=== PATIENT | male | born 1990 | race Caucasian/White ===

== ENCOUNTER 2022-01-05 23:08 | Emergency (ER) | payer MEDICAID, SELFPAY ==
[2022-01-05 23:12] VITALS: BP 119/84; PULSE 100; RESP 18; TEMP 36.5; O2SAT 98
--- NOTE | 2022-01-05 23:40 | ED.ABDPAIN ---
HPI - Abdominal Pain General Chief Complaint: Nausea/Vomiting Stated Complaint: Nausea, bloating, unable to eat/sleep Time Seen by Provider: 01/05/22 23:23 History of Present Illness HPI narrative: Pt is a 31 year old gentleman with a long history of GERD and Irritable Bowel Syndrome who presents with 5 days of nausea. Pt has been using PeptoBismol extensively. He is having bowel movements. He really has no abd pain but feels like his stomach is inflated as his nausea makes him swallow more air than normal. No other concerns. Pt has had similar symptoms previously and would simply like to be placed on Zofran and allowed to go home. No fevers, chills, dysuria, chest pain, shortness of breath or overt abd pain. No actual vomiting. Related Data Home Medications Medication Instructions Recorded Confirmed famotidine 20 mg tablet (Pepcid AC 20 mg PO DAILY 01/05/22 01/05/22 Maximum Strength) omeprazole magnesium 20 mg 20 mg PO DAILY 01/05/22 01/05/22 tablet,delayed release (Prilosec OTC) Review of Systems Status of ROS Reports: 10 or more systems reviewed and unremarkable except as noted in History and below [facility] Medical History (Updated 01/05/22 @ 23:47 by Yefri Cortes MD) GERD (gastroesophageal reflux disease) Irritable bowel Exam Narrative: Exam Narrative: EXAM GENERAL: Patient appears comfortable and well. EYES: No scleral icterus. ENT: Tympanic membranes and oropharynx normal. THYROID: no thyroid nodules or thyromegaly. LYMPH: No supraclavicular or cervical lymphadenopathy. SKIN: Visible skin seen during exam normal or with benign process only. EXT: No dependent lower extremity pedal edema. HEART: Regular rate and rhythm with no murmurs, rubs, or gallops. LUNGS: Clear to auscultation bilaterally with no crackles or wheezes. ABD: Soft, non tender, non distended. PSYCH: Good eye contact, speech is not pressured. Const: Vital Signs, click to edit/add: Vital Signs - 24 hr 01/05/22 23:12 Temperature 97.7 F Pulse Rate [Left P ulse Oximeter] 100 Respiratory Rate 18 Blood Pressure [Ri ght Upper Arm] 119/84 Pulse Oximetry 98 Oxygen Delivery Me thod Room Air Course Course Hospital Course: Pt seen and examined. Vital Signs Vital signs: Initial Vital Signs Temperature 97.7 F 01/05/22 23:12 Temperature Source Temporal Artery Scan 01/05/22 23:12 Pulse Rate 100 01/05/22 23:12 Pulse Rhythm 01/05/22 23:12 Respiratory Rate 18 01/05/22 23:12 Blood Pressure 119/84 01/05/22 23:12 Blood Pressure Mean 95 01/05/22 23:12 Blood Pressure Position Sitting 01/05/22 23:12 Pulse Oximetry 98 01/05/22 23:12 Oxygen Delivery Method 01/05/22 23:12 Vital Signs Temperature 97.7 F 01/05/22 23:12 Pulse Rate 100 01/05/22 23:12 Respiratory Rate 18 01/05/22 23:12 Blood Pressure 119/84 01/05/22 23:12 Pulse Oximetry 98 01/05/22 23:12 Oxygen Delivery Method 01/05/22 23:12 Temperature 97.7 F 01/05/22 23:12 Pulse Rate 100 01/05/22 23:12 Respiratory Rate 18 01/05/22 23:12 Blood Pressure 119/84 01/05/22 23:12 Pulse Oximetry 98 01/05/22 23:12 Oxygen Delivery Method 01/05/22 23:12 MDM - Abdominal Pain MDM Narrative Medical decision making narrative: Pt is a 31 year old with a long history of Irritable Bowel Syndrome who presents with prolonged nausea. No overt abd pain, change in bowel or bladder, fevers or chills. Pt has normal vitals and normal exam. Pt would like to be treated with Zofran without extensive workup and arrange for outpatient follow up. I think this is reasoanble due to the mild nature of his symptoms. Differential Diagnosis Differential diagnosis: Likely abdominal pain, acute appendicitis, calculus of kidney, constipation, diverticulitis, gastroenteritis, pancreatitis and small bowel obstruction Discharge Plan Discharge Clinical Impression: Nausea Patient Disposition: Home, Self-Care Condition: Stable Instructions: Irritable Bowel Syndrome (ED) Additional Instructions: Zofran as directed Advance diet as tolerated Follow up with your doctor as needed. Activity Level: No Restrictions Discharge Diet: Regular Prescriptions: No Action omeprazole magnesium [Prilosec OTC] 20 mg tablet,delayed release (DR/EC) 20 mg PO DAILY famotidine [Pepcid AC Maximum Strength] 20 mg tablet 20 mg PO DAILY Stand Alone Forms: [employer] Info Instructions
[2022-01-06 00:01] VITALS: PULSE 80; RESP 18; O2SAT 98
--- OUTSIDE RECORDS SUMMARY | 2022-01-06 00:04 | XMS_ITS | Encounter Summary ---
:1990 Author Organization [facility] Address [address] [place] [address] Care Team Providers Name Role Phone Mary Ann Jerez M.D. Primary Care Provider Reason for Visit Reason Comments Medication Question Encounter Details Date Type Department Care Team Description 12/28/2021 Nurse Triage Department of [facility] Nona To, [place] dication Question Medicine, [place], R .N. [facility], [facility] [phone] [place], [place] ([address] [phone] Social History Tobacco Use Types Packs/Day Years Used Date Smoking Tobacco: Light Smoker Sex Assigned at Date Recorded Not on file documented as of this encounter Miscellaneous Notes Telephone Encounter - Nona To M.SPrabhjot, R.N. - 12/28/2021 7:36 PM CDT Chief Complaint / Reason for Call Patient is a 31 y.o. male calling regarding Medication Question. Assessment Concern: Was in ED 12/20/2021 and was prescribed Sucralfate. He has three pills left and would like to know if he may discontinue taking them. He finds that they are hard to swallow because they taste like paste. Feels like a waxy coating in his throat when he takes them. He reports that since starting the medication the burning in his stomach is completely gone. Talking clearly and calmly on the phone. Reviewed that the ED provider prescribed the medication for a week. Kurtis says he still has three tablets left because he only takes them three times a day instead of every six hours. Present for: a week Calling to request: Information about whether he may stop taking the medication. The recommended disposition is Call PCP Within 24 Hours (overriding Home Care). He will call clinic tomorrow to ask his primary care doctor about discontinuing the medication. Recommended going to ED if he has any difficulties breathing or inability to swallow. Reason for Disposition Pill stuck in throat or esophagus Protocols used: Swallowing [id number] Care Advice Patient/Caregiver understands and will follow care advice?: Yes, able to teach back HOME CARE: * You should be able to treat this at home. TREATMENT FOR PILL STUCK: * First, try drinking some warm water (1/2 to 1 cup; 160-240 ml). * If this does not work, try eating a small amount of bread and then drinking some water. PREVENTING PILLS FROM GETTING STUCK: * Here are some recommendations for helping you to swallow pills: * First, stand up or sit up. * Take a small sip of water beforehand. Reason: To moisten mouth and esophagus. * Swallow the pill. * Drink 1/4 to 1/2 cup (60-120 ml) of water after swallowing the pill. * Remain standing or sitting up for 5-10 minutes after swallowing the pill. CALL BACK IF: * Sensation of pill being stuck does not go away completely * You become worse documented in this encounter Plan of Treatment Upcoming Encounters Date Type Specialty Care Team Description 01/12/2022 Office Visit Family Medicine Mary Ann Jerez M.D. 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 PCP - General Family Medicine 12/22/[address] [place] [phone] documented as of this encounter
--- OUTSIDE RECORDS SUMMARY | 2022-01-06 00:04 | XMS_ITS | Clinical Summary ---
:1990 Author Organization [facility] Address [address] [place] [address] Care Team Providers Name Role Phone Mary Ann Jerez M.D. Primary Care Provider Source Comments Patient records contain information from all sites at [facility]. For routine questions regarding patient records, call [phone] during business hours, M-F 8:00 AM - 5:00 PM Central Time. Record requests for emergency care only can be directed to [phone] at any time.[facility] Allergies Active Allergy Reactions Severity Noted Date Comments Cefaclor Other (see comments) 05/16/2010 Medications Medication Sig Dispensed Refills Start Date End Date Status omeprazole (PriLOSEC) Take 20 mg by [address] capsule mouth every morning before breakfast. famotidine (PEPCID) Take 20 mg by 0 Active 20 mg tablet mouth 2 (two) times a day. pantoprazole Take 1 tablet 30 tablet 0 12/20/2021 01/19/2022 A ctive (PROTONIX) 40 mg EC (40 mg total) by tablet mouth every morning before breakfast. sucralfate (CARAFATE) Take 1 tablet (1 28 tablet 0 12/20/2021 12/27/2021 1 gram tablet g total) by mouth every 6 (six) hours for 7 days. 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 Nausea; Chills; Diarrhea 01/02/2022 Nurse Triage Family Medicine Vickie Beal, COVRyan D Inquiry R.N. 12/28/2021 Nurse Triage Family Medicine Nona To, Medicat ion Question M.S.N., R.N. 12/23/2021 Nurse Triage Family Medicine Nona To, Medicat ion Question M.S.N., R.N. 12/20/2021 Emergency Emergency Medicine Alex Enriquez, Upper Abdominal Pain C.N.P. Unspecified (Pr imary Dx) from Last 3 Months Immunizations Name Administration Dates Next Due DTaP (Infanrix, Tripedia) 01/16/1990, 1989, 1989 DTaP-IPV 10/31/1993 HepB Pediatric/Adolescent 12/28/2002, 05/05/2002, 12/26/2001 Hib (PRP-T) (ACTHIB, HIBERIX) 10/16/1990 IPV 01/16/1990, 1989, 1989 MMR 12/26/2001, 10/16/1990 Td (Adult), adsorbed 12/28/2010 Tdap 12/26/2001 Family History Medical History Relation Name Comments Depression Mother Ankit Generalized anxiety disorder Mother Ankit Hyperlipidemia Mother Ankit Hypertension Mother Ankit Obesity Mother Ankit Osteoarthritis Mother Ankit Seizures Mother Ankit Relation Name Status Comments Mother Ankit Social History Tobacco Use Types Packs/Day Years Used Date Smoking Tobacco: Light Smoker Sex Assigned at Date Recorded Not on file Last Filed Vital Signs Vital Sign Reading Time Taken Comments Blood Pressure 126/95 12/20/2021 5:53 PM CDT Pulse 90 12/20/2021 5:53 PM CDT Temperature 36.8 ??C (98.2 ??F) 12/20/2021 5:53 PM CDT Respiratory Rate 16 12/20/2021 5:53 PM CDT Oxygen Saturation 99% 12/20/2021 5:53 PM CDT Inhaled Oxygen Concentration - - Weight 108 kg (238 lb 1.6 oz) 12/20/2021 5:57 PM CDT Height 178 cm (5' 10.08) 05/16/2015 7:47 AM CDT Body Mass Index 34.09 05/16/2015 7:47 AM CDT Plan of Treatment Upcoming Encounters Date Type Specialty Care Team Description 01/12/2022 Office Visit Family Medicine Mary Ann Jerez M.D. [address] [phone] (Wo rk) Health Maintenance Due Date Last Done Comments Depression Monitoring (PHQ-9) 1990 HIV Screening 1989 Hepatitis C Screening 1989 Tobacco Cessation counseling 1989 COVID-19 Vaccine (#1) 01/25/1990 Pneumococcal vaccine (0-64 years) 07/26/1995 (1 - PCV) DTaP,Tdap,and Td Vaccines (7 - Td 12/28/2020 12/28/2010, , or Tdap) 10/31/1993, Additional history exists Influenza Vaccine (#1) 2021 Hepatitis B Vaccines Completed 12/28/2002, 12/28/2002, 12/28/2002, Additional history exists Procedures Procedure Name Priority Date/Time Associated Comments Diagnosis LIPASE, S/P STAT 12/20/2021 6:14 PM Results f or this CDT procedure are i n the results section. COMPREHENSIVE STAT 12/20/2021 6:14 PM Results for this METABOLIC PANEL, S/P CDT procedu re are in the results section. CBC WITH DIFFERENTIAL, STAT 12/20/2021 6:14 PM Results for this B CDT procedure are i n the results section. from Last 3 Months Results CBC with Differential, Blood (12/20/2021 6:14 PM CDT) P athologist Signature Hemoglobin 15.5 13.2 - 12/20/2021 CNFL 16.6 g/dL 6:29 PM CDT Hematocrit 45.6 38.3 - 12/20/2021 CN[facility] 48.6 % 6:29 PM CDT Erythrocytes 5.50 4.35 - 12/20/2021 CN[facility] 5.65 6:29 PM CDT x10(12)/L MCV 82.9 78.2 - 12/20/2021 CN[facility] 97.9 fL 6:29 PM CDT RBC Distrib Width 12.6 11.8 - 12/20/2021 CN[facility] 14.5 % 6:29 PM CDT Platelet Count 228 135 - 317 12/20/2021 [facility] x10(9)/L 6:29 PM CDT Leukocytes 6.0 3.4 - 9.6 12/20/2021 CN[facility] x10(9)/L 6:29 PM CDT Neutrophils 3.77 1.56 - 12/20/2021 CNFL 6.45 6:29 PM CDT x10(9)/L Lymphocytes 1.73 0.95 - 12/20/2021 CNFL 3.07 6:29 PM CDT x10(9)/L Monocytes 0.43 0.26 - 12/20/2021 CN[facility] 0.81 6:29 PM CDT x10(9)/L Eosinophils <0.04 0.03 - 12/20/2021 CN[facility] 0.48 6:29 PM CDT x10(9)/L Basophils <0.04 0.01 - 12/20/2021 CN[facility] 0.08 6:29 PM CDT x10(9)/L Specimen Anatomical Collection Method Collection Time Receive d Time (Source) Location / / Volume Laterality Blood (Blood, 12/20/2021 6:14 PM 12/21/19 6:16 Venous) CDT PM CDT Alex Enriquez C.N.P. LAB BLOOD ADD-ON Performing Organization Address City/[facility]/ZIP Code Phon e Number [address] [phone] [place] [address] [address] Lipase (12/20/2021 6:14 PM CDT) P athologist Signature Lipase, P 30 13 - 60 U/L 12/20/2021 6:35 CN[facility] PM CDT Specimen Anatomical Collection Method Collection Time Receive d Time (Source) Location / / Volume Laterality Blood (Blood, 12/20/2021 6:14 PM 12/21/19 6:16 Venous) CDT PM CDT Alex Enriquez C.N.P. LAB BLOOD ADD-ON Performing Organization Address City/State/ZIP Code Phon e Number [facility]- [address] [place] [phone] [place] [address] [address] Comprehensive Metabolic Panel (12/20/2021 6:14 PM CDT) P athologist Signature Potassium, P 4.1 3.6 - 5.2 12/20/2021 CN[facility] mmol/L 6:35 PM CDT Sodium, P 140 135 - 145 12/20/2021 [facility] mmol/L 6:35 PM CDT Chloride, P 103 98 - 107 12/20/2021 CN[facility] mmol/L 6:35 PM CDT Bicarbonate, P 24 22 - 29 12/20/2021 CN[facility] mmol/L 6:35 PM CDT Anion Gap, P 13 7 - 15 12/20/2021 CN[facility] 6:35 PM CDT BUN (Blood Urea 13 8 - 24 12/20/2021 CN[facility] Nitrogen), P mg/dL 6:35 PM CDT Creatinine 1.11 0.74 - 12/20/2021 CNFL 1.35 mg/dL 6:35 PM CDT Estimated GFR >90 >=60 12/20/2021 CN[facility] (eGFR) mL/min/BSA 6:35 PM CDT Comment: Estimated GFR calculated using the 2020 CKD_EPI creatinine equation. Calcium, Total, P 9.6 8.6 - 10.0 mg/dL 12/20/2021 6:35 PM CDT CNFL Glucose, P 104 70 - 140 mg/dL 12/20/2021 6:35 PM CDT C NFL Protein, Total, P 7.3 6.3 - 7.9 g/dL 12/20/2021 6:35 P M CDT CN[facility] Albumin, P 4.8 3.5 - 5.0 g/dL 12/20/2021 6:35 PM CDT C NFL Aspartate Aminotransferase 29 8 - 48 U/L 12/20/2021 6 :35 PM CDT CNFL (AST), P Alkaline Phosphatase, P 68 40 - 129 U/L 12/20/2021 6: 35 PM CDT CNFL Alanine Aminotransferase (ALT), 47 7 - 55 U/L 022 6:35 PM CDT CNFL P Bilirubin, Total, P 0.5 <=1.2 mg/dL 12/20/2021 6:35 PM CDT CNFL Specimen Anatomical Collection Method Collection Time Receive d Time (Source) Location / / Volume Laterality Blood (Blood, 12/20/2021 6:14 PM 12/21/19 6:16 Venous) CDT PM CDT Alex Enriquez C.N.P. LAB BLOOD ADD-ON Performing Organization Address City/State/ZIP Code Phon e Number [facility]- [address] [place] [phone] [place] [address] from Last 3 Months Insurance Payer Benefit Plan Subscriber ID Effective Dates Phone Address Type / Group [facility] [facility] [id number] 2021-Presen [phone] [address] Medicaid HMO t 5 [place] [address] Care Teams Band Saw Marker Relationship Specialty Start Date End Date MaryA nn Jerez M.D. PCP - General Family Medicine 12/22/[address] [place] [phone]
--- OUTSIDE RECORDS SUMMARY | 2022-01-06 00:04 | XMS_ITS | Encounter Summary ---
:1990 Author Organization [facility] Address [address] [place] [address] Care Team Providers Name Role Phone Mary Ann Jerez M.D. Primary Care Provider Reason for Referral Outpatient (Routine) - Authorized Specialty Diagnoses / Procedures Referred By Contact Refer red To Contact Family Medicine Diagnoses Contact With And (Suspected) Exposure To COVID-19 Infection Upper Respiratory Mary Ann Jerez M.D. [address] [phone] Referral ID Status Reason Start Date Expiration Date Visits V isits Requested Authorized [id number] Authorized 01/02/2022 01/01/2025 1 1 Reason for Visit Reason Comments COVID Inquiry Encounter Details Date Type Department Care Team Description 01/02/2022 Nurse Triage Department of Vickie Aranda COVID Inquiry Medicine, [place] RPrabhjot [facility], in [address] [phone] [place] [phone] Social History Tobacco Use Types Packs/Day Years Used Date Smoking Tobacco: Light Smoker Sex Assigned at Date Recorded Not on file documented as of this encounter Miscellaneous Notes Telephone Encounter - Vickie Beal R.N. - 01/02/2022 7:08 PM CDT Testing Patient Agrees to: COVID-19 Only General Care Points Cover coughs and sneezes. Clean and disinfect surfaces regularly. Avoid sharing personal or household items. Notify your primary care provider of any new or worsening symptoms. COVID Care Points All symptomatic patients, even those who are up to date with COVID-19 vaccinations, should isolate pending COVID-19 testing result received. Wear a mask when around others. Stay 6 feet away from others. If your test result comes back negative for COVID-19, and you continue to have new or worsening symptoms, consider retesting after 72 hours. Education Patient/caregiver able to teach back Patient agreeable to plan of care: Yes The following references were used: CDC web site https://www.cdc.gov/coronavirus/2019-ncov/your-health/index.html Nursing judgement documented in this encounter Plan of Treatment Upcoming Encounters Date Type Specialty Care Team Description 01/12/2022 Office Visit Family Medicine Mary Ann Jerez M.D. [address] [place] [phone] (Wo rk) Scheduled Referrals Name Type Priority Associated Diagnoses Order S [facility] Family Medicine Outpatient Referral Routine Contact With And E xpected: -Symptomatic URI (Suspected) Exposure 03/2021 swab nurse visit To Covid-19 (Approximate), (clinic) Infection Upper Expires: Respiratory 01/05/2022 documented as of this encounter Visit Diagnoses Diagnosis Contact With And (Suspected) Exposure To COVID-19 - Primary Infection Upper Respiratory documented in this encounter Additional Health Concerns Assessment Noted Time PHQ-9 Depression Total Score: 8 04/26/2015 6:33 PM 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 PCP - General Family Medicine 12/22/[address] [place] [phone] documented as of this encounter
--- OUTSIDE RECORDS SUMMARY | 2022-01-06 00:04 | XMS_ITS | Encounter Summary ---
:1990 Author Organization [facility] Address [address] [place] [address] Care Team Providers Name Role Phone Mary Ann Jerez M.D. Primary Care Provider Reason for Visit Reason Comments Medication Question Encounter Details Date Type Department Care Team Description 12/23/2021 Nurse Triage Department of [facility] Nona To, Tx dication Question Medicine, [place], R.N. [facility], [facility] [phone] [place] ([facility] [address] [place] [phone] Social History Tobacco Use Types Packs/Day Years Used Date Smoking Tobacco: Light Smoker Sex Assigned at Date Recorded Not on file documented as of this encounter Miscellaneous Notes Telephone Encounter - Nona To M.S.N., R.N. - 12/23/2021 1:42 PM CDT Chief Complaint / Reason for Call Patient is a 31 y.o. male calling regarding Medication Question. Assessment Concern: Patient was prescribed sucralfate three days ago. He just took a dose and only half a dose went down; he spit out the other half. He is wondering if he should take another tablet. Calling to request: advice The recommended disposition is The following information may be helpful. The following information from the [facility].org website was reviewed with Kurtis: Missed Dose If you miss a dose of this medicine, take it as soon as possible. However, if it is almost time for your next dose, skip the missed dose and go back to your regular dosing schedule. Do not double doses. He will resume his regular dosing schedule when the next dose is due rather than taking another tablet now. He was also given the number for assistance in setting up the patient portal; I let him know I wouldplace a link in his chart about the sucralfate. Sucralfate Reason for Disposition Caller has medicine question only, adult not sick, AND triager answers question Protocols used: Medication Question [id number] Care Advice Patient/Caregiver understands and will follow care advice?: Yes, able to teach back HOME CARE - INFORMATION OR ADVICE ONLY CALL. CALL BACK IF: * You have more questions documented in this encounter Plan of Treatment Upcoming Encounters Date Type Specialty Care Team Description 01/12/2022 Office Visit Family Medicine Mary Ann Jerez M.D. 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 PCP - General Family Medicine 12/22/[address] [place] [phone] documented as of this encounter
--- OUTSIDE RECORDS SUMMARY | 2022-01-06 00:04 | XMS_ITS | Encounter Summary ---
:1990 Author Organization [facility] Address [address] [place] [address] Care Team Providers Name Role Phone Mary Ann Jerez M.D. Primary Care Provider Reason for Visit Reason Comments Abdominal Pain Nausea Chills Diarrhea Encounter Details Date Type Department Care Team Description 01/05/2022 Nurse Triage Department of [facility] Kamini Thompson dominal Pain; Medicine, Braeden Lizama R.N. Nausea; Chills; Clinic, in [place], [facility] [address] [place] [address] Social History Tobacco Use Types Packs/Day Years Used Date Smoking Tobacco: Light Smoker Sex Assigned at Date Recorded Not on file documented as of this encounter Miscellaneous Notes Telephone Encounter - Kamini Thompson R.N. - 01/05/2022 8:31 PM CDT Chief Complaint / Reason for Call Patient is a 31 y.o. male calling regarding Abdominal Pain, Nausea, Chills, and Diarrhea. Assessment Concern: nausea, cold and clammy hands, chills and then feels hot, his urine is crystal clear, abdominal pain, diarrhea Present for: 4 days Home cares tried: Pepto Bismol, tea, has not eaten much in 4 days Calling to request: advice The recommended disposition is See a health care provider within 4 hours. Reason for Disposition [1] MILD-MODERATE pain AND [2] constant AND [3] present > 2 hours 4 days Additional Information Negative: [1] SEVERE pain (e.g., excruciating) AND [2] present > 1 hour 06/11 Protocols used: Abdominal Pain - [id number] Care Advice Patient/Caregiver understands and will follow care advice?: Yes, able to teach back SEE HCP (OR PCP TRIAGE) WITHIN 4 HOURS: TAKE AN ANTACID: * If having pain now, try taking an antacid (e.g., Mylanta, Maalox). * Dose: Take 2 tablespoons (30 ml) of liquid by mouth. CALL BACK IF: * You become worse documented in this encounter Plan of Treatment Upcoming Encounters Date Type Specialty Care Team Description 01/12/2022 Office Visit Family Medicine Mary Ann Jerez M.D. 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 PCP - General Family Medicine 12/22/[address] [place] [phone] documented as of this encounter
--- OUTSIDE RECORDS SUMMARY | 2022-01-06 00:05 | XMS_ITS | Encounter Summary ---
:1990 Author Organization [facility] Address [address] [place] [address] Care Team Providers Name Role Phone Unavailable Primary Care Provider Unavailable Encounter Details Date Type Department Care Team Description 12/09/2014 Hospital Encounter HX [facility] ED Randall Jewell III, M.D. [address] [place] [phone] (Wo rk) Social History Tobacco Use Types Packs/Day Years Used Date Smoking Tobacco: Never Assessed Sex Assigned at Date Recorded Not on file documented as of this encounter Last Filed Vital Signs Vital Sign Reading Time Taken Comments Blood Pressure 107/65 12/09/2014 7:42 AM CDT Pulse 64 12/09/2014 7:42 AM CDT Temperature - - Respiratory Rate 18 12/09/2014 7:40 AM CDT Oxygen Saturation - - Inhaled Oxygen Concentration - - Weight - - Height 178 cm (5' 10.08) 12/09/2014 7:42 AM CDT Body Mass Index - - documented in this encounter Discharge Summaries Jose Cruz Miller R.N. - 12/09/2014 8:03 AM CDT ED Discharge Instructions [address] [address] Name: KURTIS COOK Date of : 1990 12:00 AM Visit Date: 12/09/2014 6:00 AM [facility] Number: [id number] Address: [address] [facility] [id number] Primary Care Provider: PCP, UNASSIGNED - JENNIFER IMPORTANT: [facility] in [place] would like to thank you for allowing us to assist you with your healthcare needs. The following includes patient education materials and informationregarding your injury/illness. Diagnosis: Stone Ureteral Follow-Up Instructions: With: Address: When: UNASSIGNED - JENNIFER PCP Within As Needed Comments: For recheck next week Your Upcoming Appointments: Date Time Location Provider No Appointments found Patient Education Materials: Kidney Stone (W/ Colic) The sharp cramping pain and nausea/vomiting that you have is due to a small stone which has formed in the kidney and is now passing down a narrow tube (ureter) on its way to your bladder. Once it reaches your bladder, the pain will stop. The stone may pass in your urine stream in one piece. [The size may be 1/16 to 1/4 (1-6mm)]. Or, the stone may also break up into chris fragments which you may noteven notice. Once you have had a kidney stone, you are at risk for developing another one in the future. Home Care: ?? Drink plenty of fluids (at least 8 to 10 glasses of water a day). ?? Most stones will pass on their own, but may take from a few hours to a few days. Sometimes the stone is too large to pass by itself and special methods will have to be used to remove the stone. ?? Each time you urinate, do so in a jar. Pour the urine from the jar through the strainer and into the toilet. Continue doing this until 24 hours after your pain stops. By then, if there was a kidney stone, it should pass from your bladder. Some stones dissolve into sand-like particles and pass rightthrough the strainer. In that case, you wont ever see a stone. ?? Save any stone that you find in the strainer and bring it to your doctor for analysis. It may be possible to prevent certain types of stones from forming. Therefore, it is important to know what kind of stone you have. ?? Try to stay as active as possible since this will help the stone pass. Do not stay in bed unless your pain prevents you from getting up. You may notice a red, pink or brown color to your urine. Thisis normal while passing a kidney stone. Follow Up with your doctor or return to this facility if the pain lasts more than 48 hours. Get Prompt Medical Attention if any of the following occur: ?? Pain that is not controlled by the medicine given ?? Repeated vomiting or unable to keep down fluids ?? Weakness, dizziness or fainting ?? Fever of 100.4?F (38?C) or higher, or as directed by your healthcare provider ?? Passage of solid red or brown urine (can't see through it) or urine with lots of blood clots ?? Unable to pass urine for 8 hours and increasing bladder pressure ?? [id number] [facility], [address] [place] [address]. All rights reserved. This information is not intended as a substitute for professional medical care. Always follow your healthcare professional's instructions. Consider Using Patient Online Services Patient Online Services is a secure online and Mobile application that lets you: ?? View lab and test results ?? View portions of your medical record including clinical notes, immunizations and discharge summaries ?? Request an appointment or medication refill ?? Review your appointment schedule ?? Send secure messages to your care team Its easy to create an account if you dont have one. Go to [email or web address] and click on Create Your Account. Then, follow the directions to complete the online form. Youll be asked for your [facility] number which you can find at the top of this document. ED Tests and Procedures: t[Normal];Default Paragraph Font;BODY;P;H1;H2;H3;H4;H5;H6;PRE; Order Status Urine Drug Screen Medical. Completed CT Abdomen w/ contrast Canceled CT Abdomen/Pelvis w/ contrast Completed Automated Diff-5 Part Completed CBC (includes Auto Differential) Completed Comprehensive Metabolic Panel Completed Urinalysis with Culture if Indicated Completed Urinalysis with Microscopic Canceled Discharge Prescriptions & Home Medications: Medication/Strength Dose Route Frequency Indications/Special Instructions/Comments/Notes HYDROcodone-acetaminophen (HYDROcodone-acetaminophen 5 mg-325 mg oral tablet) 1 to 2 tablets Oral every 6 hours as needed for Pain No more than 4,000mg acetaminophen/24hrs *citalopram (citalopram 20 mg oral tablet) See Instructions Take 1/2 tab by mouth daily for 5 days, then take 1 tab daily. * You have let us know that you are not taking this medication as listed. Please talk with your primary care provider or the health care provider who prescribed the medication as soon as possible. Comment: Attention: If you have any medications at home not on this list, DO NOT take them until you contact your provider for clarification. Give a copy of your medication list to your primary care provider. Update your medication list any time medications or doses are changed and carry your medication list at all times in case of emergency. IMPORTANT: We examined and treated you today on an emergency basis only. This was not a substitute for, or an effort to provide, complete medical care. In most cases, you must let your doctor check youagain. Tell your doctor about any new or lasting problems. We cannot recognize and treat all injuries or illnesses in one Emergency Department visit. If you had special tests, such as EKG's or X-rays, we will review them again within 24 hours. We will call you if there are any new suggestions. Please follow the instructions above carefully. If you are being transferred to another facility your followup plan of care will be determined by the receiving facility. If you are a patient that is being discharged from the Emergency Department after receiving narcotics or other medications that may impair your judgment you may be a risk to yourself or others if you operate a motor vehicle. We recommend that you arrange a ride home with a responsible democrat. IJOYCE CAMERON THOMAS , or responsible democrat have received this information and my questions have been answered. I have discussed any challenges I see with this plan with the nurse or physician. Patient Signature or Responsible Green Party/Relationship Date Time Provider Signature Date Time IMPORTANT: We examined and treated you today on an emergency basis only. This was not a substitute for, or an effort to provide, complete medical care. In most cases, you must let your doctor check youagain. Tell your doctor about any new or lasting problems. We cannot recognize and treat all injuries or illnesses in one Emergency Department visit. If you had special tests, such as EKG's or X-rays, we will review them again within 24 hours. We will call you if there are any new suggestions. Please follow the instructions above carefully. If you are being transferred to another facility your followup plan of care will be determined by the receiving facility. If you are a patient that is being discharged from the Emergency Department after receiving narcotics or other medications that may impair your judgment you may be a risk to yourself or others if you operate a motor vehicle. We recommend that you arrange a ride home with a responsible democrat. I, KURTIS COOK , or responsible democrat have received this information and my questions have been answered. I have discussed any challenges I see with this plan with the nurse or physician. Patient Signature or Responsible Green Party/Relationship Date Time Provider Signature Date Time This document has images extracted. Please consider using [employer] for all your patient education needs. Source: [facility] POWERCHART Document Id: [id number] Jose Cruz Miller R.N. - 12/09/2014 8:03 AM CDT ED Depart Summary [facility] Emergency Department Clinical Discharge Summary PERSON INFORMATION Name KURTIS COOK Age 24 Years 1990 12:00 AM Sex Male Language Portuguese PCP PCP, UNASSIGNED - [place] Marital Status Single Visit Id Visit Reason Abdominal pain; abdominal pain Specialty Enc Type Emergency Med Service Emergency Medicine Referred by [facility] ED Discharge 12/09/2014 8:00 AM Tracking Id [id number] Checkout 12/09/2014 8:00 AM Checkin 12/09/2014 6:00 AM Acuity 3 -Urgent Dispo Type * Discharged to Home or Self Care Arrival 12/09/2014 6:00 AM Reg Status Complete LOS 000 02:00 Address: [address] [facility] [address] [place] [id number] Comment: PROVIDER INFORMATION Provider Role Provider Contact Time DREW WALDRON ED Nurse 12/09/14 06:03 RANDALL JEWELL III, MD ED Provider 12/09/14 06:43 JOSE CRUZ MILLER MEETING FACILITATOR Nurse 12/09/14 07:46 DIAGNOSIS Stone Ureteral Comment: PATIENT EDUCATION INFORMATION Instructions: KIDNEY STONE w/ Colic Follow up: With: Address: When: UNASSIGNED - [place] PCP Within As Needed Comments: For recheck next week Source: [employer] Document Id: [id number] documented in this encounter Nursing Notes Drew Waldron R.N. - 12/09/2014 6:57 AM CDT PRN Response PRN Response Entered On: 12/09/2014 6:54 CDT Performed On: 12/09/2014 6:57 CDT by DREW WALDRON PRN Medication Effectiveness Evaluation PRN Medication Effective : Yes Post Medication Pain Assessment : 3 DREW WALDRON - 12/09/2014 6:54 CDT Source: [employer] Document Id: [id number] CDT!4 documented in this encounter ED Notes Jose Cruz Miller R.N. - 12/09/2014 7:46 AM CDT ED Treatments and Procedures ED Treatments and Procedures Entered On: 12/09/2014 7:46 CDT Performed On: 12/09/2014 7:46 CDT by JOSE CRUZ MILLER RN Peripheral IV Peripheral IV Assess/Intervention Grid Peripheral IV #1 IV Activity : Discontinue Removal : Catheter intact, Hemostasis within expected timeframe Number of Attempts : 1 Date of Insertion : 12/09/2014 CDT IV Site : Antecubital Laterality : Left Catheter Size : 18 Catheter Type : Protective JOSE CRUZ MILLER RN - 12/09/2014 7:46 CDT Source: [employer] Document Id: [id number] CDT!12 Jose Cruz Miller R.N. - 12/09/2014 7:46 AM CDT ED Disposition Summary ED Disposition Summary Entered On: 12/09/2014 7:47 CDT Performed On: 12/09/2014 7:46 CDT by JOSE CRUZ MILLER MEETING FACILITATOR Disposition Summary Accompanied By : Spouse Mode of Discharge : Ambulatory Transportation : Private vehicle Printed Discharge Instructions Given to Patient : Yes Patient Status at Discharge from ED : Improved JOSE CRUZ MILLER RN - 12/09/2014 7:46 CDT Source: [employer] Document Id: [id number] CDT!7 Cliff Delcid M.D. - 12/09/2014 7:43 AM CDT Abdominal pain Patient: KURTIS COOK Age: 24 years Sex: Male : 1990 Author: CLIFF DELCID MD Attachments: None Associated Diagnosis: Stone Ureteral Basic Information Time seen: Date & time 12/09/2014 07:00:00. History source: Patient. Arrival mode: Private vehicle. History limitation: None. Additional information: Chief Complaint from Nursing Triage Note : Chief Complaint Description 12/09/2014 6:28 CDT Chief Complaint Description see triage note 12/09/2014 6:03 CDT Chief Complaint Description Patient comes to the ED with complaints of RLQ abdominal pain rated a 10/10. . History of Present Illness The patient was signed over to me at [address] Jewell, who ordered a CT scan of the abdomen withIV contrast. The patient had experienced the sudden onset of severe right lower abdominal pain radiating into his right testicle, associated with nausea and diaphoresis. He says he feels much better now after morphine and ondansetron. He rates his pain now at 3/10. Review of Systems Constitutional symptoms: Negative except as documented in HPI. Skin symptoms: Negative except as documented in HPI. Gastrointestinal symptoms: Negative except as documented in HPI. Health Status Allergies: Allergic Reactions (Selected) Severity Not Documented Ceclor- No reactions were documented.. Past Medical/ Family/ Social History Medical history: Active Depression Anxiety (F41.8): Onset on 07/29/2012 at 22 years.. Surgical history: Teeth ([id number]) in 2006 at 16 Years. 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 Family history: Chronic pain syndrome Mother (Ankit Howard) Hypertension Mother (Ankit Howard) Seizure disorder Mother (Ankit Howard) Generalized anxiety disorder Mother (Ankit Howard) Hypercholesterolemia Mother (Ankit Howard) Depression Mother (Ankit Howard) Obesity Mother (Ankit Howard) Degenerative joint disease Mother (Ankit Howard) . Physical Examination Vital Signs: Vital Signs 12/09/2014 7:42 CDT Peripheral Pulse Rate 64 /min SpO2 99 % Systolic Blood Pressure 107 mmHg Diastolic Blood Pressure 65 mmHg BP Location Left upper 12/09/2014 7:40 CDT Temperature Core 36.2 DegC LOW Peripheral Pulse Rate 65 /min Respiratory Rate 18 /min SpO2 98 % Systolic Blood Pressure 95 mmHg Diastolic Blood Pressure 58 mmHg BP Location Left upper 12/09/2014 6:47 CDT Temperature Core 35.9 DegC LOW 12/09/2014 6:03 CDT Peripheral Pulse Rate 77 /min SpO2 98 % Systolic Blood Pressure 118 mmHg Diastolic Blood Pressure 65 mmHg Mean Arterial Pressure 83 mmHg BP Location Left upper , Measurements 12/09/2014 7:42 CDT Height 178 cm 12/09/2014 7:40 CDT Height 178 cm 12/09/2014 6:47 CDT Height 178 cm 12/09/2014 6:28 CDT Height 178 cm Height Source Stated Dosing Weight 100.00 kg NA Estimated Weight 100 kg . General: No acute distress. Skin: Warm, dry and pink. Gastrointestinal: Soft, Non distended, No organomegaly and no guarding. Mild tenderness in right midto lower abdomen. No masses or hernias.. Genitourinary: Normal appearance and lie of testicles and penis. Right testicle mildly tender. No tenderness of epididymis. Mild right CVA tenderness to percussion.. Lymphatics: No lymphadenopathy. Psychiatric: Cooperative and appropriate mood & affect. Medical Decision Making Differential Diagnosis:Abdominal pain, Appendicitis, renal stone, ureteral stone, irritable bowel syndrome, urinary tract infection, pyelonephritis, epididymitis., Testicular torsion.. Radiology results:09-Dec-2014 07:06:00 Exam: CT ABDOMEN w & PELVIS w STAT Indications: RLQ acute pain no reboud. ORIGINAL REPORT - 09-Dec-2014 07:22:00 EXAM: CT scan of the Abdomen and Pelvis with IV contrast COMPARISON: None IMPRESSION: 1. Tiny nonobstructing right renal stone. No ureteral stone. 2. No cause for right lower quadrant pain identified. FINDINGS: Small esophageal hiatal hernia. Tiny right hepatic cyst or hemangioma. Tiny nonobstructingstone in a right renal calyx (series 2, image 30). No ureteral stones. Retrocecal appendix which is normal in appearance. Fecalization in the terminal ileum without evidence of inflammation. Remainder negative. . Impression and Plan Diagnosis Stone Ureteral (Discharge, Emergency medicine, Medical) Plan Condition: Improved. Disposition: Discharged: to home. 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 Patient was given the following educational materials: KIDNEY STONE w/ Colic, KIDNEY STONE w/ Colic. Follow up with: UNASSIGNED - [place] PCP Within As Needed For recheck next week. Counseled: Patient, Family, Regarding diagnosis, Regarding diagnostic results, Regarding treatment plan, Regarding prescription, Patient indicated understanding of instructions. Orders: Launch Orders Patient Care: Discharge ED Patient (Order Processing): 12/09/2014 7:47 CDT, Once. Despite absence of hydroureter or hydronephrosis, patient's signs and symptoms most consistent with right ureteral colic secondary to stone. Microscopic hematuria, sudden onset, severe pain, pattern ofradiation of pain all typical of renal stone. No evidence for appendicitis, epididymitis, torsion, or UTI, which were also considered. Patient incidentally has elevated fasting glucose of 172, which could be a stress response. He recalls no family history of diabetes mellitus. I advised him to have another fasting glucose drawn when he follows up with his primary physician. Electronically Signed By: CLIFF DELCID MD On: 12/09/2014 08:14 AM Modified by and Electronically Signed by: CLIFF DELCID MD On: 12/09/2014 08:14 AM Source: [facility] [employer] Document Id: [id number]} Jose Cruz Miller R.N. - 12/09/2014 7:41 AM CDT ED Pain Assessment ED Pain Assessment Entered On: 12/09/2014 7:41 CDT Performed On: 12/09/2014 7:41 CDT by JOSE CRUZ MILLER RN Pain Assessment Pain Symptoms : Yes JOSE CRUZ MILLER RN - 12/09/2014 7:41 CDT Pain Scale Pain Scale Verbal 0-10 : Open JOSE CRUZ MILLER RN - 12/09/2014 7:41 CDT Pain Pain Assessment Grid Pain 1 Location : Abdomen Intensity : 3 JOSE CRUZ MILLER RN - 12/09/2014 7:41 CDT Source: [employer] Document Id: [id number] CDT!10 Jose Cruz Miller R.N. - 12/09/2014 7:14 AM CDT ED Pain Assessment ED Pain Assessment Entered On: 12/09/2014 7:14 CDT Performed On: 12/09/2014 7:14 CDT by JOSE CRUZ MILLER RN Pain Assessment Pain Symptoms : Yes JOSE CRUZ MILLER RN - 12/09/2014 7:14 CDT Pain Scale Pain Scale Verbal 0-10 : Open JOSE CRUZ MILLER RN - 12/09/2014 7:14 CDT Pain Pain Assessment Grid Pain 1 Location : Abdomen Intensity : 3 JOSE CRUZ MILLER RN - 12/09/2014 7:14 CDT Source: [employer] Document Id: [id number] CDT!10 Drew Waldron R.N. - 12/09/2014 6:28 AM CDT ED Primary Assessment Document Has Been Updated ED Primary Assessment Entered On: 12/09/2014 6:31 CDT Performed On: 12/09/2014 6:28 CDT by DREW WALDRON Reason For Visit (As Of: 12/09/2014 06:31:03 CDT) Problems(Active) Depression with anxiety (dysthymic) (ICD-9-CM :300.4 ) Name of Problem: Depression with anxiety (dysthymic) ; Onset Date: 07/29/2012 ; Recorder: EDMOND BROUSSARD DNP, FNP; Confirmation: Confirmed ; Classification: Medical ; Code: 300.4 ; Last Updated: 07/29/2012 15:08 CDT ; Life Cycle Status: Active ; Responsible Provider: EDMOND BROUSSARD DNP, FNP; Vocabulary: ICD-9-CM Dysthymic Disorder (ICD-9-CM :300.4 ) Name of Problem: Dysthymic Disorder ; Onset Date: 2011 ; Recorder: HOLA HOOKS NP; Confirmation: Confirmed ; Classification: Medical ; Code: 300.4 ; Contributor System: [employer] ; Last Updated: 06/27/2011 18:23 CDT ; Life Cycle Date: 06/27/2011 ; Life Cycle Status: Active ; Responsible Provider: HOLA HOOKS NP; Vocabulary: ICD-9-CM Tobacco abuse (ICD-9-CM :305.1 ) Name of Problem: Tobacco abuse ; Onset Date: 03/21/2011 ; Recorder:HOLA HOOKS NP; Confirmation: Confirmed ; Classification: Medical ; Code: 305.1 ; Last Updated: 03/21/2011 15:46 PLATE FITTER ; Life Cycle Status: Active ; Responsible Provider: HOLA HOOKS NP; Vocab ulary: ICD-9-CM Diagnoses(Active) Abdominal pain Date: 12/09/2014 ; Diagnosis Type: Reason For Visit ; Confirmation: Complaint of ; Clinical Dx: Abdominal pain ; Classification: Medical ; Clinical Service: Emergency medicine ; Code: PNED ; Probability: 0 ; Diagnosis Code: [id number] Triage Chief Complaint Description : see triage note Mode of Arrival ED : Private vehicle, Ambulatory Track : Medical Languages : Portuguese Vital Signs Assessed : Yes Treatments Prior to Arrival : None Is Patient Female and 13-50 no hysterectomy : No DREW WALDRON 12/09/2014 6:28 CDT Vital Signs Height : 178 cm(Converted to: 5 ft 10 inch(es)) Height Source : Stated Estimated Weight : 100 kg Estimated Weight Conversion to Pounds : 220 lb DREW WALDRON 12/09/2014 6:28 CDT Pain Assessment Pain Symptoms : Yes DREW WALDRON 12/09/2014 6:28 CDT Respiratory Airway : Patent Respirations : Unlabored Respiratory Pattern : Regular THAI WALDRON12/09/2014 6:28 CDT Cardiovascular Heart Rhythm : Regular Skin Color : Normal for ethnicity Skin Description : Dry Skin Temperature : Warm MARCUSLUCIATHAI12/09/2014 6:28 CDT Neurological Last Well Time Known : Not applicable Level of Consciousness : Alert Orientation : Oriented x 3 Characteristics of Speech : Appropriate for age Neuro Patient Stated Symptoms : None THAI WALDRON12/09/2014 6:28 CDT ED Psychosocial Affect/Behavior : Cooperative, Anxious Domestic Abuse Concerns : None Behavioral Health Screen/Safety Assmt : No DREW WALDRON 12/09/2014 6:28 CDT Gastrointestinal Nutrition ED : Adequate GI Detailed Assessment : Yes DREW WALDRON 12/09/2014 6:28 CDT GI Detailed GI Patient Stated Symptoms : Abdominal pain DREW WALDRON 12/09/2014 6:28 CDT Musculoskeletal Fall Prevention Education Provided : THAI RAMEY12/09/2014 6:28 CDT Social Habits Tobacco Use/Currently Using : Yes Exposure to Tobacco Smoke : Patient smokes Smoking Status : Current every day smoker DREW WALDRON 12/09/2014 6:28 CDT Tobacco Use Grid Type : Cigarettes Cigarette Use Packs/Day : 0.5 THAI WALDRON12/09/2014 6:28 CDT Alcohol Use Grid Alcohol Use : Yes Frequency : Occasionally DREW WALDRON 12/09/2014 6:28 CDT Recreational Drug Use Grid Drug Use : None DREW WALDRON 12/09/2014 6:28 CDT Source: [facility] POWERCHART Document Id: [id number] CDT!57 Randall Jewell M.D. - 12/09/2014 6:15 AM CDT Abdominal pain Patient: KURTIS COOK Age: 24 years Sex: Male : 1990 Author: RANDALL JEWELL III, MD Attachments: None Basic Information Time seen: Immediately upon arrival. History source: Patient. Arrival mode: Private vehicle. History limitation: None. Additional information: Chief Complaint from Nursing Triage Note : Chief Complaint Description 12/09/2014 6:03 CDT Chief Complaint Description Patient comes to the ED with complaints of RLQ abdominal pain rated a 10/10. . History of Present Illness The patient presents with abdominal pain. The onset was 1 hours ago and abrupt. The course/duration of symptoms is constant and fluctuating in intensity. The character of symptoms is achy and sharp. The degree at onset was severe. The Location of pain at onset was right and lower. The degree at present is severe. The Location of pain at present is right, lower and abdominal. Radiating pain: right testicle. The exacerbating factor is defecation. The relieving factor is none. Therapy today: none. Riskfactors consist of none. Associated symptoms: nausea, diaphoresis, chills and altered sensation (distal, upper extremity). Review of Systems Constitutional symptoms: Negative except as documented in HPI. Skin symptoms: Negative except as documented in HPI. Eye symptoms: Negative except as documented in HPI. ENMT symptoms: Negative except as documented in HPI. Respiratory symptoms: Negative except as documented in HPI. Cardiovascular symptoms: Negative except as documented in HPI. Gastrointestinal symptoms: Negative except as documented in HPI. Genitourinary symptoms: Negative except as documented in HPI. Musculoskeletal symptoms: Negative except as documented in HPI. Neurologic symptoms: Negative except as documented in HPI. Psychiatric symptoms: Negative except as documented in HPI. Endocrine symptoms: Negative except as documented in HPI. Hematologic/Lymphatic symptoms: Negative except as documented in HPI. Allergy/immunologic symptoms: Negative except as documented in HPI. Health Status Allergies: Allergic Reactions (Selected) Severity Not Documented Ceclor- No reactions were documented.. Medications: (Selected) Prescriptions Prescribed citalopram 20 mg oral tablet: See Instructions, Take 1/2 tab by mouth daily for 5 days, then take 1 tab daily., 30 tab(s). Past Medical/ Family/ Social History Medical history: Active Depression Anxiety (F41.8): Onset on 07/29/2012 at 22 years.. Surgical history: Teeth (SNOMED CT [id number]) in 2006 at 16 Years. 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 Family history: Mother: Ankit Howard Hypertension Hypercholesterolemia Obesity Degenerative joint disease Chronic pain syndrome Seizure disorder Depression Generalized anxiety disorder Father History is negative. Brother History is negative. Brother History is negative. Brother History is negative. . Social history: Alcohol use: Occasionally, Tobacco use: Regularly, Drug use: Denies, Occupation: Employed, Family/social situation: , intact family. Problem list: All Problems Tobacco abuse / 305.1 / Confirmed Dysthymic Disorder / 300.4 / Confirmed Depression Anxiety / F41.8 / Confirmed. Physical Examination Vital Signs: Vital Signs 12/09/2014 6:03 CDT Peripheral Pulse Rate 77 /min SpO2 98 % Systolic Blood Pressure 118 mmHg Diastolic Blood Pressure 65 mmHg Mean Arterial Pressure 83 mmHg BP Location Left upper . General: Severe distress. Skin: Warm and moist. Head: Normocephalic. Cardiovascular: Regular rate and rhythm, No murmur and Normal peripheral perfusion. Respiratory: Lungs are clear to auscultation and breath sounds are equal. Gastrointestinal: Soft, Guarding: Moderate, right lower quadrant, Rebound: Negative, Bowel sounds: High pitched, Organomegaly: Negative, Trauma: Negative, Mass: Negative and Scars: Negative. Neurological: Alert and oriented to person, place, time, and situation. Medical Decision Making Differential Diagnosis:Abdominal pain, Appendicitis, bowel obstruction, bowel perforation. OrdersLaunch Orders Laboratory: Urine Drug Screen Medical. (Order Processing): Stat, 12/09/2014 6:33 CDT, Once, Urine Radiology: CT Abdomen w/ contrast (Order Processing): 12/09/2014 6:34 CDT, RLQ acute pain no reboud., Stat, Patient Bed, Once, 12/09/2014 6:34 CDT, [facility] ED, Launch Orders Patient Care: ED Abdominal Pain - Lower (Order Processing) ED Saline Lock (Order Processing) Peripheral IV (Order Processing): 12/09/2014 6:36 CDT ED Pain Management Adult (Order Processing) Pharmacy: Saline flush (Order Processing): 10 mL, IV Push, PRN, PRN: Maintain IV access ondansetron (Order Processing): 4 mg, IV Push, Once morphine (Order Processing): 4 mg, IV Push, q30min, PRN: Pain, Launch Orders Pharmacy: Saline bolus (Order Processing): 1,000 mL, IVPB, Once, launch Order Profile (Selected) Inpatient Orders Ordered (Dispatched) Urinalysis with Culture if Indicated: Urinalysis with Microscopic: Ordered (In-Lab) Automated Diff-5 Part: CBC (includes Auto Differential): Comprehensive Metabolic Panel: . Results review:Lab results : Lab View 12/09/2014 6:38 CDT U Tricyclic Scr Negative U THC Scrn Negative U Oxycodone Scrn Negative U Opiate Scrn Positive U Methamp Scr Negative U Methadone Negative U Ecstasy Scrn Negative U Cocaine Scrn Negative U Benzodia Scrn Negative U Barbit Scrn Negative U Amphet Scrn Negative U Phencyclidine Negative 12/09/2014 6:10 CDT Hgb 15.2 g/dL Hct 43.9 % WBC 7.9 x10(9)/L RBC 5.29 x10(12)/L MCV 83.0 fL RDW 12.6 % Platelet 245 x10(9)/L Neutro Absolute 3.50 10(9)/L Lymph Absolute 3.24 x10(9)/L HI Latimer Absolute 1.00 x10(9)/L HI Eos Absolute 0.15 x10(9)/L Baso Absolute 0.04 x10(9)/L Differential? Auto . Impression and Plan Plan Disposition: Patient care transitioned to: Time: 12/09/2014 07:15:00, CLIFF DELCID MD. Electronically Signed By: RANDALL JEWELL III, MD On: 12/09/2014 07:15 AM Modified by and Electronically Signed by: RANDALL JEWELL III, MD On: 12/09/2014 07:15 AM Source: [employer] Document Id: [id number]} Drew Waldron R.N. - 12/09/2014 6:10 AM CDT ED Treatments and Procedures ED Treatments and Procedures Entered On: 12/09/2014 6:45 CDT Performed On: 12/09/2014 6:10 CDT by DREW WALDRON Peripheral IV Peripheral IV Assess/Intervention Grid Peripheral IV #1 IV Activity : Start Number of Attempts : 1 Date of Insertion : 12/09/2014 CDT IV Site : Antecubital Laterality : Left Catheter Size : 18 Catheter Type : Protective DREW WALDRON - 12/09/2014 6:44 CDT [facility] Document Id: [id number] CDT!11 Drew Waldron R.N. - 12/09/2014 6:03 AM CDT ED Triage Assessment Document Has Been Updated ED Triage Assessment Entered On: 12/09/2014 6:05 CDT Performed On: 12/09/2014 6:03 CDT by DREW WALDRON Reason For Visit (As Of: 12/09/2014 06:06:00 CDT) Problems(Active) Depression with anxiety (dysthymic) (ICD-9-CM :300.4 ) Name of Problem: Depression with anxiety (dysthymic) ; Onset Date: 07/29/2012 ; Recorder: EDMOND BROUSSARD DNP, FNP; Confirmation: Confirmed ; Classification: Medical ; Code: 300.4 ; Last Updated: 07/29/2012 15:08 CDT ; Life Cycle Status: Active ; Responsible Provider: EDMOND BROUSSARD DNP, FNP; Vocabulary: ICD-9-CM Dysthymic Disorder (ICD-9-CM :300.4 ) Name of Problem: Dysthymic Disorder ; Onset Date: 2011 ; Recorder: HOLA HOOKS NP; Confirmation: Confirmed ; Classification: Medical ; Code: 300.4 ; Contributor System: PowerChart ; Last Updated: 06/27/2011 18:23 CDT ; Life Cycle Date: 06/27/2011 ; Life Cycle Status: Active ; Responsible Provider: HOLA HOOKS NP; Vocabulary: ICD-9-CM Tobacco abuse (ICD-9-CM :305.1 ) Name of Problem: Tobacco abuse ; Onset Date: 03/21/2011 ; Recorder:HOLA HOOKS NP; Confirmation: Confirmed ; Classification: Medical ; Code: 305.1 ; Last Updated: 03/21/2011 15:46 PLATE FITTER ; Life Cycle Status: Active ; Responsible Provider: HOLA HOOKS NP; Vocab ulary: ICD-9-CM Diagnoses(Active) Abdominal pain Date: 12/09/2014 ; Diagnosis Type: Reason For Visit ; Confirmation: Complaint of ; Clinical Dx: Abdominal pain ; Classification: Medical ; Clinical Service: Emergency medicine ; Code: PNED ; Probability: 0 ; Diagnosis Code: [id number] Triage Chief Complaint Description : Patient comes to the ED with complaints of RLQ abdominal pain rated a 10/10. Information Given By : Patient Accompanied By : Friend Mode of Arrival ED : Private vehicle, Ambulatory Track : Medical Languages : Portuguese Vital Signs Assessed : Yes Treatments Prior to Arrival : None Is Patient Female and 13-50 no hysterectomy : No DREW WALDRON 12/09/2014 6:03 CDT Vital Signs Peripheral Pulse Rate : 77 /min Systolic Blood Pressure : 118 mmHg Diastolic Blood Pressure : 65 mmHg NIBP Mean : 83 mmHg BP Location : Left upper extremity SpO2 : 98 % Oxygen Therapy : Room air DREW WALDRON 12/09/2014 6:03 CDT Pain Assessment Pain Symptoms : Yes DREW WALDRON 12/09/2014 6:03 CDT Pain Scale Pain Scale Verbal 0-10 : Open DREW WALDRON 12/09/2014 6:03 CDT Pain Pain Assessment Grid Pain 1 Location : Abdomen Laterality : Right Intensity : 10 Time Pattern : Acute Onset : Sudden Quality : Aching, Sharp DREW WALDRON 12/09/2014 6:03 CDT ED Physician Notification Time ED Physician Notification Time : 12/09/2014 6:04 CDT DREW WALDRON - 12/09/2014 6:03 CDT JANICE DCP GENERIC CODE Tracking Acuity : 3 -Urgent Tracking Group : [facility] ED DREW WALDRON - 12/09/2014 6:03 CDT Allergy (As Of: 12/09/2014 06:06:01 CDT) Allergies (Active) Ceclor Estimated Onset Date: Unspecified ; Created By: CARLY PARSONS LPN; Reaction Status: Active ; Category: Drug ; Substance: Ceclor ; Type: Allergy ; Updated By: CARLY PARSONS LPN; Reviewed Date: 07/29/2012 9:19 CDT Immunizations Immunizations Current : No DREW WALDRON - 12/09/2014 6:03 CDT [facility] Document Id: [id number] CDT!40 documented in this encounter Miscellaneous Notes Miscellaneous - Conversion, Historical Provider Ser - 12/09/2014 8:00 AM CDT Coding Summary-Paper Based CODING DATE: 01/12/2015 [facility] STATUS: * Discharged to Home or Self Care PAYOR: Medicaid ADMIT DX: R10.13 Epigastric pain REASON FOR VISIT DX: R10.31 Right lower quadrant pain FINAL DX: PRINCIPAL: N20.1 Calculus of ureter SECONDARY: R61 Generalized hyperhidrosis PROCEDURES DOCTOR NAME DATE NOTE: The code number assigned matches the documented diagnosis and / or procedure in the patient's chart. However, the narrative phrase printed from the coding software may appear abbreviated, or result in slightly different terminology. Coded By: ADIS CHEUNG Date Saved: 01/12/2015 12:03 pm [facility] Document Id: [id number] Miscellaneous - Cliff Delcid M.D. - 12/09/2014 7:58 AM CDT School Excuse 09 December 2014 [address] [facility] [phone] Dear KURTIS COOK, You were examined in my office on: December 09, 2014. You are unable to work until Wednesday, December 10, 2014. Sincerely, CLIFF DELCID [facility] [place], [place] [address] Electronic Signature Electronically Signed By: CLIFF DELCID MD On: 09 December 2014 This document has images extracted. Source: [facility] [employer] Document Id: [id number] Miscellaneous - Jose Cruz Miller R.N. - 12/09/2014 7:47 AM CDT Valuables/Belongings Valuables/Belongings Entered On: 12/09/2014 7:47 CDT Performed On: 12/09/2014 7:47 CDT by JOSE CRUZ MILLER RN Valuables/Belongings Home Medication Disposition : None brought in with patient JOSE CRUZ MILLER RN - 12/09/2014 7:47 CDT Source: [facility] [employer] Document Id: [id number] CDT!3 Miscellaneous - Jose Cruz Miller RPrabhjot - 12/09/2014 6:00 AM CDT Facility Charge Ticket 2.0 11.0 DX Facility Charge Ticket 2.0 11.0 DX Entered On: 12/09/2014 7:47 CDT Performed On: 12/09/2014 6:00 CDT by JOSE CRUZ MILLER RN Facility Charge Ticket 2.0 11.0 DX ED Other Charges : Standard ED Encounter TVL Level Translated RTF : Abdominal pain TVL:4 TVL Level for Facility Charge Ticket : Level 4 Arrival Mode Calc : 1 Mode of Arrival ED : Private vehicle, Ambulatory [facility] Mode of Arrival Interpreted : Standard [facility] Process Management : None Order Management RTF : Laboratory CBC (includes Auto Differential),12/09/14 06:18,RANDALL JEWELL III, MD Completed Comprehensive Metabolic Panel,12/09/14 06:18,RANDALL JEWELL III, MD Completed Urinalysis with Culture if Indicated,12/09/14 06:18,RANDALL JEWELL III, MD Completed Urine Drug Screen Medical.,12/09/14 06:33,RANDALL JEWELL III, MD Completed Automated Diff-5 Part,12/09/14 06:34,RANDALL JEWELL III, MD Completed CT / MRI / Ultrasound CT Abdomen/Pelvis w/ contrast,12/09/14 06:34,RANDALL JEWELL III, MD Completed [facility] Order Management : CT/MRI/Ultrasound, Lab tests 30 Minutes Critical Care : No Nursing Notes RTF : Triage Forms ED Triage Assessment,12/09/14 06:03,DREW WALDRON Nursing Notes ED Primary Assessment,12/09/14 06:28,DREW WALDRON ED Pain Assessment,12/09/14 07:41,JOSE CRZU MILLER MEETING FACILITATOR Pain Assessment,12/09/14 07:14,JOSE CRUZ MILLER RN [facility] Nursing Assessment : Triage and 1-2 nursing assessments [facility] Disposition : Discharge [facility] Total Points with Diagnosis Control : 10 [facility] Visit Level : 71059 Level 4 Treatments Prior to Arrival : None JOSE CRUZ MILLER RN - 12/09/2014 7:47 CDT Source: [employer] Document Id: [id number] CDT!18 documented in this encounter Plan of Treatment Upcoming Encounters Date Type Specialty Care Team Description 01/12/2022 Office Visit Family Medicine Mary Ann Jerez M.D. [address] [place] [phone] (Wo rk) documented as of this encounter Procedures Procedure Name Priority Date/Time Associated Comments Diagnosis URINALYSIS, MIDSTREAM, Routine 12/09/2014 6:38 AM Results for this WITH CULTURE IF CDT procedure ar e in INDICATED the results section. DRUG SCREEN URINE Routine 12/09/2014 6:38 AM Resu lts for this CDT procedure are i n the results section. AUTOMATED Routine 12/09/2014 6:10 AM Results f or this DIFFERENTIAL, B CDT procedure ar e in the results section. CBC WITH DIFFERENTIAL, Routine 12/09/2014 6:10 AM Results for this B CDT procedure are i n the results section. COMPREHENSIVE Routine 12/09/2014 6:10 AM Results for this METABOLIC PANEL, S/P CDT procedu re are in the results section. documented in this encounter Results Drug Screen Urine (12/09/2014 6:38 AM CDT) [facility] Method Time Signature HXU Amphet Scrn Negative POWERCHART Barbiturates Negative POWERCHART HX U Benzodia Negative POWERCHART Scrn Cocaine Negative POWERCHART Carboxy-THC Negative POWERCHART Immunoassay Screen Methadone Negative POWERCHART Immunoassay Screen Amphetamine/Metha Negative POWERCHART mphetamine, Urine HXU Ecstasy Scrn Negative POWERCHART Opiates Positive POWERCHART Oxycodone-by Negative POWERCHART LC-MS/MS HX U Negative POWERCHART Phencyclidine HXU Tricyclic Scr Negative POWERCHART Specimen (Source) Anatomical Collection Method Collection Time Re ceived Time Location / / Volume Laterality Urine 12/09/2014 6:38 AM CDT Randall Jewell III, M.D. LAB URINE ORDERABLES Performing Organization Address City/State/ZIP Code Phon e Number POWERCHART (ABNORMAL) Urinalysis, Midstream, with culture if indicated (12/09/2014 6:38 AM CDT) [facility] Method Time Signature HXUR WBC. Occ-3 None Seen POWERCHART HPF HXUR RBC. 3-10 (A) None Seen POWERCHART HPF Mucus Present (A) None Seen POWERCHART HXUr Color Yellow Colorless POWERCHART Clarity Clear Clear POWERCHART Glucose Negative Negative POWERCHART MGDL HXBILIRUBIN Small (A) Negative POWERCHART Ketones, QL(U) Negative Negative POWERCHART MGDL Specific 1.025 POWERCHART Harvey, POCT, U pH, POCT, Urine 5.5 <5.0 POWERCHART Protein, Ur, 30 (A) Negative POWERCHART Dip MGDL Urobilinogen 0.2 0.2 MGDL POWERCHART HXNITRITE Negative Negative POWERCHART HXBLOOD Moderate Negative POWERCHART (A) Leukocyte Negative Negative POWERCHART Esterase Specimen (Source) Anatomical Collection Method Collection Time Re ceived Time Location / / Volume Laterality Urine, First 12/09/2014 6:38 AM Voided CDT Randall Jewell III, M.D. LAB URINE ORDERABLES Performing Organization Address City/[facility] Code Phon e Number POWERCHART (ABNORMAL) Automated Differential (12/09/2014 6:10 AM CDT) [facility] Method Time Signature Absolute 3.50 1.70 - POWERCHART Neutrophils 7.00 109L Lymphocytes 3.24 (H) 0.90 - POWERCHART 2.90 X109L Monocytes 1.00 (H) 0.30 - POWERCHART 0.90 X109L Eosinophils 0.15 0.05 - POWERCHART 0.50 X109L Absolute 0.04 0.00 - POWERCHART Basophil 0.30 X109L Specimen Anatomical Collection Method Collection Time Receive d Time (Source) Location / / Volume Laterality Blood 12/09/2014 6:10 AM 5 6:10 CDT AM CDT Randall Jewell III, M.D. LAB BLOOD ADD-ON Performing Organization Address [facility] Phon e Number POWERCHART CBC with Differential (12/09/2014 6:10 AM CDT) athologist Signature Leukocytes 7.9 3.5 - 10.5 POWERCHART X109L Erythrocytes 5.29 4.32 - POWERCHART 5.72 [id number] Hemoglobin 15.2 13.5 - POWERCHART 17.5 GDL Hematocrit 43.9 38.8 - POWERCHART 50.0 MCV 83.0 81.0 - POWERCHART 95.0 FL HX RDW 12.6 11.8 - POWERCHART 15.6 Platelet Count 245 150 - 450 POWERCHART X109L HXDifferential? Auto POWERCHART Specimen (Source) Anatomical Collection Method Collection Time Re ceived Time Location / / Volume Laterality Blood 12/09/2014 6:10 AM CDT Randall Jewell III, M.D. LAB BLOOD ADD-ON Performing Organization Address City/[facility] Phon e Number POWERCHART (ABNORMAL) CMP (Comprehensive Metabolic Panel) (12/09/2014 6:10 AM CDT) [facility] Method Time Signature Anion Gap 17 10 - 20 POWERCHART MMOLL Alkaline 77 45 - 115 POWERCHART Phosphatase, S UL Alanine 22 7 - 55 POWERCHART Amniotransferase, LD UNITL Aspartate 21 8 - 48 POWERCHART Aminotransferase UNITL (AST), S Bilirubin, Total, S 0.5 0.1 - 1.0 POWERCHART MGDL BUN (Blood Urea 15 7 - 18 POWERCHART Nitrogen), S MGDL Chloride, S 103 98 - 107 POWERCHART MMOLL CO2 Total 21.3 (L) 23.0 - POWERCHART 29.0 MMOLL Creatinine 0.94 0.60 - POWERCHART 1.30 MGDL Total Protein, S 6.9 6.3 - 7.9 POWERCHART GDL Glucose 174 (H) 70 - 139 POWERCHART MGDL Calcium, Total, S 9.2 8.6 - POWERCHART 10.0 MGDL Sodium, S 138.0 135.0 - POWERCHART 145.0 MMOLL Potassium, S 3.4 (L) 3.6 - 4.8 POWERCHART MMOLL Albumin, S 4.3 3.5 - 5.0 POWERCHART GDL HXeGFR (MDRD) >60 >=60 POWERCHART [id number] 2 eGFR Black/ >60 >=60 POWERCHART Togolese [id number] 2 Specimen (Source) Anatomical Collection Method Collection Time Re ceived Time Location / / Volume Laterality Blood 12/09/2014 6:10 AM CDT Randall Jewell III, M.D. LAB BLOOD ADD-ON Performing Organization Address City/State/ZIP Code Phon e Number POWERCHART documented in this encounter Visit Diagnoses Not on filedocumented in this encounter Additional Health Concerns Assessment Noted Time PHQ-9 Depression Total Score: 10 07/29/2012 2:45 PM CD T documented as of this encounter
--- OUTSIDE RECORDS SUMMARY | 2022-01-06 00:05 | XMS_ITS | Encounter Summary ---
:1990 Author Organization [facility] Address [address] [place] [address] Care Team Providers Name Role Phone Unavailable Primary Care Provider Unavailable Encounter Details Date Type Department Care Team Description 01/01/2017 Orders Only [facility] Medical Examination Adult; Medicine, Thaddeus Joy M.D. Screening Examination Diabetes Mellitus [facility], in [address] [place] [phone] [place], [place] [phone] (W ork) [id number] [phone] Social History Tobacco Use Types Packs/Day Years Used Date Smoking Tobacco: Light Smoker Sex Assigned at Date Recorded Not on file documented as of this encounter Plan of Treatment Upcoming Encounters Date Type Specialty Care Team Description 01/12/2022 Office Visit Family Medicine Mary Ann Jerez M.D. [address] [place] [phone] (Wo rk) documented as of this encounter Visit Diagnoses Diagnosis General Medical Examination Adult Screening Examination Diabetes Mellitus documented in this encounter Additional Health Concerns Assessment Noted Time PHQ-9 Depression Total Score: 8 04/26/2015 6:33 PM MANAGER LOCATION documented as of this encounter
--- OUTSIDE RECORDS SUMMARY | 2022-01-06 00:05 | XMS_ITS | Encounter Summary ---
:[address] [facility] Address [address] [place] [address] Care Team Providers Name Role Phone Unavailable Primary Care Provider Unavailable Encounter Details Date Type Department Care Team Description 11/20/[address] [facility] ME Jose Yusuf M.D. [address] [phone] (Wo rk) Social History Tobacco Use Types Packs/Day Years Used Date Smoking Tobacco: Never Assessed Sex Assigned at Date Recorded Not on file documented as of this encounter Progress Notes Mir Yusuf M.D. - 11/20/2010 12:00 AM CDT [id number] IMPRESSION/REPORT/PLAN Shoulder tendonitis with epicondylitis and wrist tendonitis. Recommend Flexeril, 10 milligrams, 1-tablet, three times a day (t.i.d.), PRN. Ice. Ibuprofen. Splint. Engage in occupational therapy, hand therapy. Recheck if not improved. Suggest he sleep on a mattress. CHIEF COMPLAINT/REASON FOR VISIT Back pain from the right upper shoulder down into his arm as well as into the biceps and forearm, the epicondylar area and the dorsal radial area down in to his wrist. HISTORY OF PRESENT ILLNESS He does a lot of repetitive motion with his hands during the day. He is sleeping on a cold floor. He is sleep disturbed because of his pain. Otherwise, no chronic medical problems. VITAL SIGNS Pulse: 60. Respirations: 16. Blood pressure: 104/68. PHYSICAL EXAM IN GENERAL: He appears to be somewhat disheveled. He is alert and oriented. No evidence of substance abuse. He is not intoxicated. MUSCULOSKELETAL: He has palpable muscle spasm in his proximal shoulder on the right posteriorly. 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 Normal DTRs. Upper extremities left and right. Lateral epicondylar point tenderness as well. Mir Yusuf M.D. /mary ann Electronically Signed By: MIR YUSUF MD On: 11/23/2010 08:22 AM Source: [facility] MHSDOLBEYNONRADSYS Document Id: [id number] documented in this encounter Miscellaneous Notes Miscellaneous - Mir Yusuf M.D. - 11/20/2010 12:20 PM CDT Ambulatory Patient Summary [id number] [place] [address] Visit Information Name: KURTIS COOK Current Date: 11/20/2010 12:20:41 Primary Care Provider: HOLA HOOKS NP Your Medications Here is a list of your medications. It is important to take your medications as directed. Use a pillbox or chart to help remind you to take your medications. Please let your doctor or nurse know if you have problems taking your medications. Medication/Strength Dose Route Frequency Indications/Special Instructions/Comments cyclobenzaprine (Flexeril 10 mg oral tablet) 10 mg Oral three times a day as needed for Muscle spasmuse as needed valACYclovir (Valtrex 1 g oral tablet) 1 gm Oral two times a day Your Allergies & Intolerances Substance Reaction Symptoms Category Comments Ceclor Drug Your Problem List Problem Status Onset Comments No Problems found Your Recommendations We want to make sure you get the tests, immunizations, and guidance you need to stay healthy. Here is a customized list of recommendations, based on information we have in your medical record. Your doctor may have additional recommendations for you, based on your personal medical history and risk factors. You can help us by calling us to make an appointment when you are due for your tests. Additional information regarding recommendations: Test/Treatment Last Done Next Due Additional Information Lipid Panel every 5 years Age 20-75 11/20/2010 Checks blood for good (HDL) and bad (LDL) cholesterol. Know your numbers, they are one indicator of your risk for heart attack and stroke. Vaccine: Tetanus every 10 years 12/26/2001 12/24/2011 Immunization to help prevent you from getting the serious disease Tetanus (Cesar). Your Upcoming Appointments Date Time Location Reason Provider No Appointments found Your Goals/Additional instructions: Source: [facility] Affectv Document Id: [id number] Miscellaneous - Mir Yusuf M.D. - 11/20/2010 12:20 PM CDT Ambulatory Depart Summary [address] [address] Visit Information Name: KURTIS COOK Current Date: 11/20/2010 12:20:41 Primary Care Provider: HOLA HOOKS NP MARISAESDRASKURTIS has been given the following list of medications: Your Medications It is important to take your medications as directed. Use a pill box or chart to help remind you to take your medications. Please let your doctor or nurse know if you have problems taking your medications. Medication/Strength Dose Route Frequency Indications/Special Instructions/Comments cyclobenzaprine (Flexeril 10 mg oral tablet) 10 mg Oral three times a day as needed for Muscle spasmuse as needed valACYclovir (Valtrex 1 g oral tablet) 1 gm Oral two times a day Additional Information: Yes - Current list of reconciled medications is provided and explained to the patient and/or family, guardian/caregiver. Source: [facility] Affectv Document Id: [id number] Miscellaneous - Mikhail Montoya, L.P.N. - 11/20/2010 12:04 PM CDT Health Assessment Health Assessment Entered On: 11/20/2010 12:04 CDT Performed On: 11/20/2010 12:04 CDT by MIKHAIL MONTOYA LPN Nutrition Nutrition Risk Factors by History Adult: None MIKHAIL MONTOYA LPN - 11/20/2010 12:04 CDT Functional Current Daily Living Assistance: None MONTOYAMIKHAIL LPN - 11/20/2010 12:04 CDT Dependent Habits Tobacco Use/Currently Using: Yes Exposure to Tobacco Smoke: Patient smokes JUSTINO MIKHAIL Pagan LPN - 11/20/2010 12:04 CDT Tobacco Use Grid Type: Cigarettes Cigarette Use Packs/Day: 1.0 MONTOYAMIKHAIL LPN - 11/20/2010 12:04 CDT Caffeine Use Grid Caffeine Use: Current Type: Soft drinks Frequency: Daily MONTOYAMIKHAIL LPN - 11/20/2010 12:04 CDT Recreational Drug Use Grid Drug Use: None MIKHAIL MONTOYA LPN - 11/20/2010 12:04 CDT Psychosocial Domestic Abuse Concerns: None MIKHAIL MONTOYA LPN - 11/20/2010 12:04 CDT Advance Directive Advanced Directives: No MIKHAIL MONTOYA LPN - 11/20/2010 12:04 CDT Educ Needs Learning Style Preference Adult Grid Patient: None Family: None MIKHAIL MONTOYA LPN - 11/20/2010 12:04 CDT [facility] Document Id: [id number] CDT!28 Miscellaneous - Mikhail Montoya LMatiasP.N. 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/History Entered On: 11/20/2010 12:03 CDT Performed On: 11/20/2010 11:58 CDT by MIKHAIL MONTOYA LPN Intake Chief Complaint: Entire back down middle from neck and right, hand swelled, sore, x2 wks Temperature Core: 35.5C(Converted to: 95.9DegF) (LOW) Peripheral Pulse Rate: 60/min Respiratory Rate: 16/min Systolic Blood Pressure: 104mmHg Diastolic Blood Pressure: 68mmHg NIBP Mean: 80mmHg BP Location: Right upper extremity Heart Rhythm: Regular Height: 178.20cm(Converted to: 5ft 10inch(es), 70.16inch(es)) Actual Weight: 90.700kg(Converted to: 199lb 15oz) Weight Source: Standing scale Dosing Weight Clinic: 90.70kg Clinic BSA: 2.12 Body Mass Index: 28.56kg/m2 MIKHAIL MONTOYA [facility] - 11/20/2010 11:58 CDT Subjective Pain Symptoms: Yes MIKHAIL MONTOYA [facility] 11/20/2010 11:58 CDT Pain Pain Assessment Grid Pain 1 Location: Lower back (Comment: from neck down back and right arm [MIKHAIL MONTOYA [facility] 11/20/201011:58 CDT] ) Intensity: 6 Time Pattern: Constant Onset: Gradual Quality: Burning Pain Radiation: Yes (Comment: down right arm [MIKHAIL MONTOYA [facility] 11/20/2010 11:58 CDT] ) Aggravating Factors: Movement (Comment: bending , sitting up [MIKHAIL MONTOYA [facility] 11/20/2010 11:58 CDT] ) Alleviating Factors: None Associated Symptoms: Nausea Interventions: Medications, Repositioning MIKHAIL MONTOYA [facility] - 11/20/2010 11:58 CDT Dependent Habits Tobacco Use/Currently Using: Yes Tobacco Use/Advised to Quit: Yes Exposure to Tobacco Smoke: Patient smokes MIKHAIL MONTOYA [facility] 11/20/2010 11:58 CDT Tobacco Use Grid Type: Cigarettes Cigarette Use Packs/Day: 1.0 MIKHAIL MONTOYA [facility] - 11/20/2010 11:58 CDT Alcohol Use: No MIKHAIL MONTOYA [facility] 11/20/2010 11:58 CDT Caffeine Use Grid Caffeine Use: Current Type: Soft drinks Frequency: Daily MIKHAIL MONTOYA [facility] - 11/20/2010 11:58 CDT Recreational Drug Use Grid Drug Use: None MIKHAIL MONTOYA [facility] 11/20/2010 11:58 CDT Allergy Allergies (Active) Ceclor Estimated Onset Date: Unspecified ; Created By: CARLY PARSONS LPN; Reaction Status: Active ; Category: Drug ; Substance: Ceclor ; Type: Allergy ; Updated By: CARLY PARSONS LPN; Reviewed Date: 11/20/2010 11:57 CDT Source: [facility] POWERCHART Document Id: [id number] CDT!49 documented in this encounter Plan of Treatment Upcoming Encounters Date Type Specialty Care Team Description 01/12/2022 Office Visit Family Medicine Mary Ann Jerez M.D. [address] [place] [phone] (Wo rk) documented as of this encounter Visit Diagnoses Not on filedocumented in this encounter
--- OUTSIDE RECORDS SUMMARY | 2022-01-06 00:05 | XMS_ITS | Encounter Summary ---
:1990 Author Organization [facility] Address [address] [place] [address] Care Team Providers Name Role Phone Unavailable Primary Care Provider Unavailable Encounter Details Date Type Department Care Team Description 11/15/2009 Hospital Encounter [facility] IN[facility]OBS[facility] Kanchan Bello M.D. [address] [facility] [address] [address] Joy, [address] [address] (Beulah lisa) Social History Tobacco Use Types Packs/Day Years Used Date Smoking Tobacco: Never Assessed Sex Assigned at Date Recorded Not on file documented as of this encounter Plan of Treatment Upcoming Encounters Date Type Specialty Care Team Description 01/12/2022 Office Visit Family Medicine Mary Ann Jerez M.D. [address] [place] [phone] (Wo rk) documented as of this encounter Visit Diagnoses Not on filedocumented in this encounter
--- OUTSIDE RECORDS SUMMARY | 2022-01-06 00:05 | XMS_ITS | Encounter Summary ---
:1990 Author Organization [facility] Address [address] [place] [address] Care Team Providers Name Role Phone Unavailable Primary Care Provider Unavailable Encounter Details Date Type Department Care Team Description 03/21/2011 Hospital Encounter HX [facility] ME Adolfo Jacobsen, N.P. [address] [place] [address] (Wo rk) Social History Tobacco Use Types Packs/Day Years Used Date Smoking Tobacco: Never Assessed Sex Assigned at Date Recorded Not on file documented as of this encounter Last Filed Vital Signs Vital Sign Reading Time Taken Comments Blood Pressure 110/70 03/21/2011 3:24 PM CHANGE COORDINATOR Pulse 68 03/21/2011 3:24 PM CHANGE COORDINATOR Temperature - - Respiratory Rate 16 03/21/2011 3:24 PM CHANGE COORDINATOR Oxygen Saturation - - Inhaled Oxygen Concentration - - Weight 96.1 kg (211 lb 13.8 oz) 03/21/2011 3:24 PM CHANGE COORDINATOR Height - - Body Mass Index - - documented in this encounter Progress Notes Hola Jacobsen, N.P. - 03/21/2011 12:00 AM CST [id number] CHIEF COMPLAINT/REASON FOR VISIT Wants to quit smoking. HISTORY OF PRESENT ILLNESS Kurtis a 20-year-old male who is here today requesting a prescription for Chantix, says he would like to quit smoking. He reports that he has smoked for about seven years on average about two pack per day. He states that he has quit one time before about a year ago for six months but was unable to maintain this change. He states his main motivation at this point time is the cost, as he can no longer afford of cigarettes. Also reports that he would like to feel better and be able to walk to work and not feel short of breath. He also reports he will be moving in with his girlfriend's parents who do not allow smoking and he would like to be done with smoking by then. Kurtis states that he has had a previous prescription for Chantix but never started it and he quit before he just went cold turkey. CURRENT MEDICATIONS New medications today include: 1) Chantix starter pack to be used as directed with an additional Chantix, 1 milligram, twice daily; #56 with four refills. ALLERGIES 1) CECLOR. PAST MEDICAL HISTORY 1) Essentially negative except for tobacco abuse. VITAL SIGNS Temperature: 35.4-degrees Centigrade. Pulse: 68. Respirations: 16. Blood pressure: 110/70. PHYSICAL EXAMINATION IN GENERAL: Kurtis is alert, oriented x3. EXAM: The rest of his physical exam is deferred as the entire time has been spent in consultation. IMPRESSION/REPORT/PLAN IMPRESSION 1. Tobacco abuse. PLAN 1. Prescription for Chantix has been written. Purpose, use and side effects of the medications were covered. Discussed with him that the ideal day to quit would be day eight after starting the medication. We discussed strategies for potential barriers or challenges to quitting. Encouragement was given. Kurtis is to follow-up at the clinic as needed. We discussed that also that we would plan for a total of six months of therapy. PATIENT EDU #1 Patient Education Ready to learn No apparent learning barriers were identified Learning preferences include listening Explained diagnosis and treatment plan Patient/Child/Caregiver expressed understanding of the content. Hola Jacobsen N.P. /mary ann Electronically Signed By: HOLA JACOBSEN WELDER MANUFACTURE On: 03/27/2011 02:54 PM Source: [facility] MHSDOLBEYNONRADSYS Document Id: [id number] GE COORDINATOR documented in this encounter Miscellaneous Notes Miscellaneous - Hola Jacobsen NMatiasPMatias - 03/21/2011 3:47 PM CST Ambulatory Patient Summary [address] [address] Visit Information Name: KURTIS COOK Current Date: 03/21/2011 15:47:19 Primary Care Provider: HOLA JACOBSEN [employer] Your Medications Here is a list of your medications. It is important to take your medications as directed. Use a pillbox or chart to help remind you to take your medications. Please let your doctor or nurse know if you have problems taking your medications. Medication/Strength Dose Route Frequency Indications/Special Instructions/Comments varenicline (Chantix 1 mg oral tablet) 1 mg Oral two times a day varenicline (Chantix Starter Pack 0.5 mg-1 mg oral tablet) See special instructions Oral as directedfor 28 Days 0.5mg daily on Days 1-3, 0.5mg 2xDay on Days 4-7, then 1mg 2xDay after meals Your Allergies & Intolerances Substance Reaction Symptoms Category Comments Ceclor Drug Your Problem List Problem Status Onset Comments Tobacco abuse Active 03/21/2011 Your Recommendations We want to make sure [...] Test/Treatment Last Done Next Due Additional Information Health Assessment every 1 year 03/21/2011 Lipid Panel every 5 years Age 20-75 03/21/2011 Checks blood for good (HDL) and bad (LDL) cholesterol. Know your numbers, they are one indicator of your risk for heart attack and stroke. Vaccine: Tetanus every 10 years 12/28/2010 12/25/2020 Immunization to help prevent you from getting the serious disease Tetanus (Lockjaw). Your Upcoming Appointments Date Time Location Reason Provider No Appointments found Your Goals/Additional instructions: Source: [facility] POWERCHART Document Id: [id number] GE COORDINATOR Miscellaneous - Hola Jacobsen, N.P. - 03/21/2011 3:47 PM CST Ambulatory Depart Summary [facility] [address] [place] [address] Visit Information Name: KURTIS COOK Current Date: 03/21/2011 15:47:18 Attending Provider: HOLA JACOBSEN NP Primary Care Provider: HOLA JACOBSEN NP KURTIS COOK has been given the following list of medications: Your Medications It is important to take your medications as directed. Use a pill box or chart to help remind you to take your medications. Please let your doctor or nurse know if you have problems taking your medications. Medication/Strength Dose Route Frequency Indications/Special Instructions/Comments varenicline (Chantix 1 mg oral tablet) 1 mg Oral two times a day varenicline (Chantix Starter Pack 0.5 mg-1 mg oral tablet) See special instructions Oral as directedfor 28 Days 0.5mg daily on Days 1-3, 0.5mg 2xDay on Days 4-7, then 1mg 2xDay after meals Additional Information: Source: [facility] POWERCHART Document Id: [id number] GE COORDINATOR Miscellaneous - Mikhail Montoya L.PMatiasN. 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 Intake/History Entered On: 03/21/2011 15:26 CHANGE COORDINATOR Performed On: 03/21/2011 15:24 CHANGE COORDINATOR by MIKHAIL MONTOYA LPN Intake Chief Complaint : Wants to quit smoking Temperature Core : 35.4C(Converted to: 95.7DegF) (LOW) Peripheral Pulse Rate : 68/min Respiratory Rate : 16/min Heart Rhythm : Regular Systolic Blood Pressure : 110mmHg Diastolic Blood Pressure : 70mmHg NIBP Mean : 83mmHg BP Location : Left upper extremity Blood Pressure Cuff Size : Regular Actual Weight : 96.1kg(Converted to: 211lb 14oz) Weight Source : Standing scale Dosing Weight Clinic : 96.10kg MIKHAIL MONTOYA LPN - 03/21/2011 15:24 CHANGE COORDINATOR Subjective Pain Symptoms : No MIKHAIL MONTOYA L CAREER SERVICES REPRESENTATIVE - 03/21/2011 15:24 CHANGE COORDINATOR Dependent Habits Tobacco Use/Currently Using : Yes Tobacco Use/Advised to Quit : Yes Exposure to Tobacco Smoke : Patient smokes Smoking Status : Smoker JUSTINOMIKHAIL LPN - 03/21/2011 15:24 CHANGE COORDINATOR Tobacco Use Grid Type : Cigarettes Cigarette Use Packs/Day : 1.0 MONTOYAMIKHAIL LPN - 03/21/2011 15:24 CHANGE COORDINATOR Alcohol Use : No MIKHAIL MONTOYA LPN - 03/21/2011 15:24 CHANGE COORDINATOR Caffeine Use Grid Caffeine Use : Current Type : Soft drinks Frequency : Daily JUSTINOMIKHAIL LPN - 03/21/2011 15:24 CHANGE COORDINATOR Recreational Drug Use Grid Drug Use : None MONTOYAMIKHAIL LPN - 03/21/2011 15:24 CHANGE COORDINATOR Allergy Allergies (Active) Ceclor Estimated Onset Date: Unspecified ; Created By: CARLY PARSONS LPN; Reaction Status: Active ; Category: Drug ; Substance: Ceclor ; Type: Allergy ; Updated By: CARLY PARSONS LPN; Reviewed Date: 03/21/2011 15:23 CHANGE COORDINATOR Source: [facility] [employer] Bever[employer] Document Id: [id number] CHANGE COORDINATOR!35 GE COORDINATOR documented in this encounter Plan of Treatment Upcoming Encounters Date Type Specialty Care Team Description 01/12/2022 Office Visit Family Medicine Mary Ann Jerez M.D. [address] [place] [phone] (Wo rk) documented as of this encounter Visit Diagnoses Not on filedocumented in this encounter
--- OUTSIDE RECORDS SUMMARY | 2022-01-06 00:05 | XMS_ITS | Encounter Summary ---
:1990 Author Organization [facility] Address [address] [place] [address] Care Team Providers Name Role Phone Unavailable Primary Care Provider Unavailable Encounter Details Date Type Department Care Team Description 12/28/2010 Hospital Encounter [facility] ME Kevin Ricardo M.D. [address] [place] [address] (Wo rk) Social History Tobacco Use Types Packs/Day Years Used Date Smoking Tobacco: Never Assessed Sex Assigned at Date Recorded Not on file documented as of this encounter Progress Notes Kevin Ricardo M.D. - 12/28/2010 12:00 AM CDT [id number] IMPRESSION/REPORT/PLAN Laceration, right hand, over the first metacarpal. PLAN: three simple 4-0 nylon sutures are placed without difficulty. Keep wound clean. Tetanus booster is given. Follow up in one week for suture removal. CHIEF COMPLAINT/REASON FOR VISIT Laceration, right hand. HISTORY OF PRESENT ILLNESS This 20-year-old patient comes in for followup. He is unsure of his tetanus status. He was apparently trying to work on his car when a wrench slipped and he had a small superficial laceration and is here for evaluation. CURRENT MEDICATIONS Medications as noted. ALLERGIES Ceclor. VITAL SIGNS TEMP: 36.2 degrees PULSE: 64 BP: 106/66 PHYSICAL EXAM GENERAL: pleasant gentleman in no acute distress. SKIN: the right hand has about a 1.5-cm laceration just over the MP joint of the first digit. The area was cleaned and prepped and sutures were placed of 3 simple 4-0 nylon sutures. Kevin Ricardo M.D. / Electronically Signed By: KEVIN RICARDO MD On: 01/02/2011 04:26 PM Source: [facility] MHSDOLBEYNONRADSYS Document Id: [id number] documented in this encounter Miscellaneous Notes Miscellaneous - Mikhail Montoya, L.P.N. 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 Temperature Core: 36.2C(Converted to: 97.2DegF) (LOW) Peripheral Pulse Rate: 64/min Respiratory Rate: 16/min Systolic Blood Pressure: 106mmHg Diastolic Blood Pressure: 66mmHg NIBP Mean: 79mmHg BP Location: Left upper extremity Heart Rhythm: Regular Actual Weight: 93.000kg(Converted to: 205lb 0oz) Weight Source: Standing scale Dosing Weight Clinic: 93.00kg MIKHAIL MONTOYA LPN - 12/28/2010 13:43 CDT Subjective Pain Symptoms: No MIKHAIL MONTOYA LPN - 12/28/2010 13:43 CDT Dependent Habits Tobacco Use/Currently Using: Yes Tobacco Use/Advised to Quit: Yes Exposure to Tobacco Smoke: Patient smokes Smoking Status: Smoker MIKHAIL MONTOYA LPN - 12/28/2010 13:43 CDT Tobacco Use Grid Type: Cigarettes Cigarette Use Packs/Day: 1.0 MIKHAIL MONTOYA LPN - 12/28/2010 13:43 CDT Alcohol Use: Yes MIKHAIL MONTOYA LPN - 12/28/2010 13:43 CDT Caffeine Use Grid Caffeine Use: Current Type: Soft drinks Frequency: Daily MIKHAIL MONTOYA LPN - 12/28/2010 13:43 CDT Recreational Drug Use Grid Drug Use: None MIKHAIL MONTOYA LPN - 12/28/2010 13:43 CDT Allergy Allergies (Active) Ceclor Estimated Onset Date: Unspecified ; Created By: CARLY PARSONS LPN; Reaction Status: Active ; Category: Drug ; Substance: Ceclor ; Type: Allergy ; Updated By: CARLY PARSONS LPN; Reviewed Date: 12/28/2010 13:43 CDT Source: [facility] POWERCHART Document Id: [id number] CDT!34 documented in this encounter Plan of Treatment Upcoming Encounters Date Type Specialty Care Team Description 01/12/2022 Office Visit Family Medicine Mary Ann Jerez M.D. [address] [place] [phone] (Wo rk) documented as of this encounter Visit Diagnoses Not on filedocumented in this encounter
--- OUTSIDE RECORDS SUMMARY | 2022-01-06 00:05 | XMS_ITS | Encounter Summary ---
:1990 Author Organization [facility] Address [address] [place] [address] Care Team Providers Name Role Phone Unavailable Primary Care Provider Unavailable Encounter Details Date Type Department Care Team Description 05/16/2015 Hospital Encounter HX [facility] [place] Benja Sparks M.D. [address] [place] [phone] (Wo rk) Social History Tobacco Use Types Packs/Day Years Used Date Smoking Tobacco: Never Assessed Sex Assigned at Date Recorded Not on file documented as of this encounter Last Filed Vital Signs Vital Sign Reading Time Taken Comments Blood Pressure 121/79 05/16/2015 7:47 AM CDT Pulse 68 05/16/2015 7:47 AM CDT Temperature - - Respiratory Rate 18 05/16/2015 7:47 AM CDT Oxygen Saturation - - Inhaled Oxygen Concentration - - Weight 95 kg (209 lb 7 oz) 05/16/2015 7:47 AM CDT Height 178 cm (5' 10.08) 05/16/2015 7:47 AM CDT Body Mass Index 29.98 05/16/2015 7:47 AM CDT documented in this encounter Progress Notes Benja Bradley M.D. - 05/16/2015 6:59 AM CDT Clinic Full Note CHIEF COMPLAINT/REASON FOR VISIT med review HISTORY OF PRESENT ILLNESS Kurtis presents today to follow up on his mood. He reports there has been a lot of changes since we saw him last. He is now living with his brother and udzipl-vm-ctr in [place] and reports that things are going fine. His brother and tnltqt-xd-wkg are very supportive and try to get him out of the house. Unfortunately Kurtis is starting to develop some social anxiety and he does not like to be around people anymore. They went to [facility] and he had a severe panic attack when surrounded byall of the people. His heart starts pounding and he gets an overwhelming sense of the need to leave when he is around people. He is afraid that he might freak out. He reports that the anxiety is now the worst and he cannot do anything. He has been out of the clonazepam for a couple days. He felt like he was doing better when he was on a full pill rather than 1/2 pill. He also states that the clonazepam keeps him from smoking. He continues to take 40mg of Prozac per day. He has not been drinking. He feels like his paranoia has resolved and he denies any sense of dread. He has been sleeping at night but also taking up to a 3-hour nap during the day. He has been going to work kind of. He usually goes in 2 or 3 days per week but they do not let him stay past the 4 hours which is the restriction replaced. He needs more hours and would like to have this extended. His normal work week should be 5 or 6 days per week. He states that work has been very supportive. He denies any thoughts of hurting himself. He is eating again and has unfortunately gained some weight even though he is following the eating plan. He has also been going to the gym for up to 2 hours per day with his brother. He continues to the spend money because it makes him feel better. He reports buying 100 video games on sale at one point because his ex-girlfriend would not let him buy video games previously. He also states he took a friend and the friend's daughter shopping and bought them clothes because he felt bad for them. He has now cut up his credit cards to limit his spending. 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 SOCIAL HISTORY Date Time: 05/16/2015 07:47 Tobacco: Smoking Status: Light tobacco smoker Exposure: Patient smokes Alcohol: Use: No Recreational Drugs: Use: None Type: No Results Found FAMILY HISTORY Mother Lanie):Positive: Chronic pain syndrome; Degenerative joint disease; Depression; Generalized anxiety disorder; Hypercholesterolemia; Hypertension; Obesity; Seizure disorder Father: Negative: Brother: Negative: Brother: Negative: Brother: Negative: SYSTEMS REVIEW As per HPI. PHQ-9 score is 11. KHALIDA 7 score is 14. VITAL SIGNS T: 36.6 ??C (Core) HR: 68 RR: 18 BP: 121 / 79 SpO2: 99% HT: 178 cm WT: 95.0 kg BMI: 29.98 PHYSICAL EXAMINATION GENERAL: Patient is alert and oriented in no acute distress Psychiatric: Mood is described as anxious. Affect is mood congruent. Patient is fidgety moving his hands or tapping his foot. Speech is of a fairly regular rate. Thought process is more linear today. Insight is adequate. Judgment is a little cloudy related to spending. IMPRESSION/REPORT/PLAN 1. Disorder Adjustment Mixed Emotion And Conduct Patient is experiencing more social anxiety and even panic attacks with agoraphobia. At this point he has been on Prozac for about a month so I would have expected greater improvement. We are going toplace patient back on clonazepam at 0.5 mg twice daily with 1 prn dose. We are also going to refer to Psychiatry to get their input. Patient will continue to follow with our psychologist Dr. Lamar Bacon. I do think he is in a more supportive environment which is a good thing. We also extended his working restriction to 6 hours per day with breaks as needed. We will see him back in 2 to 4 weeks depending upon when his psychiatry appointment is. Ordered: OV Est Pt Level 4 - 42368 - 25 min 28 minutes was spent with the patient today with greater than half spent discussing his current health issues and management. Electronically Signed By: BENJA PERALTA MD On: 05/18/2015 07:04 AM Source: Simple Document Id: [id number] documented in this encounter Miscellaneous Notes Miscellaneous - Merlin Orona Provider Ser - 07/04/2016 9:04 AM CDT *General Message From: LUZ KEITH To: JAY GALVAN; Sent: 07/04/2016 09:04:58 CDT Subject: *General Message FYI - Returned Mail Notification Your letter dated 06/26/2016 sent to this patient was returned due to moved/no longer at this address. Source: [facility] POWERCHART Document Id: [id number] RVISOR TYPE PHOTOGRAPHY Miscellaneous - Jay Galvan - 06/26/2016 11:48 AM CDT Health Maintenance Reminder June 26, [address] [facility] [phone] Dear KURTIS COOK, We have developed a six-month overview of preventive and recommended services that apply to your unique health care needs. Some may be past due or may be coming due in the next three months. If youhave already scheduled any or all of these services, thank you. We recognize that this may or may not include all of your individualized health care needs; however, we are happy to help you with any and all primary care concerns you may have. Past Due Fasting Glucose Lab Test for Diabetes Screening: recommended preventive service starting at age 18 Fasting Lipid Panel: recommended preventive service starting at age 20 It may be possible to bundle some of the above services together to make your visit with us more convenient. Please call [phone] to schedule services that are past due or that may shortly become due (thank you if you have already done so). We will follow up in three to six months should you have more services to schedule at that time. If you have already received any of the listed past due or upcoming services outside of [facility], please call [phone] to add them to your medical record. You may want to consider contacting your health insurance company to make sure these services are covered and find out if there will be any oso-no-oecxby expense. If you have any questions about the services listed above, or if you are no longer receiving care from [facility], please contact us at [phone]. Thank you for partnering to provide you with the best care possible. We encourage you to set up your Patient Online Services account [email or web address], where you can communicate in a convenient way with us, schedule appointments, receive lab results and more. To set up your account, you will need your [facility] Number, which is [phone]. Thank you for choosing us, Benja Guerra M.D. and the [facility] Team, for your health care needs! Sincerely, JAY GALVAN Electronic Signature Electronically Signed By: JAY GALVAN On: June 26, 2016 This document has images extracted. Source: [facility] POWERCHART Document Id: [id number] RVISOR TYPE PHOTOGRAPHY Miscellaneous - Jay Galvan - 04/04/2016 2:42 PM CST Reminder Msg / PHQ9 Document Contains Addenda Addendum by JAY GALVAN on April 11, 2016 07:39:30 SUPERVISOR TYPE PHOTOGRAPHY Noted Addendum by JO CORNELIUS on April 10, 2016 14:12:26 SUPERVISOR TYPE PHOTOGRAPHY From: JO CORNELIUS ([place] Family Medicine Nurse Antonio) To: JAY GALVAN; Sent: 04/10/2016 14:12:26 SUPERVISOR TYPE PHOTOGRAPHY Show up: 04/10/2016 14:12:00 SUPERVISOR TYPE PHOTOGRAPHY Subject: RE: Reminder Msg / PHQ9 No correct number in the patients chart. From: JAY GALVAN To: [place] Family Medicine Nurse Antonio; Sent: 04/04/2016 14:42:41 SUPERVISOR TYPE PHOTOGRAPHY Show up: 04/04/2016 14:43:00 SUPERVISOR TYPE PHOTOGRAPHY Subject: Reminder Msg / PHQ9 Please Remember to: Patient is being screened for Depression Quality Measures. Patient has an active depression or anxiety diagnosis Patient is due for an updated PHQ9. Last Score: 8 Date: 04/26/2015 Please contact patient Thank you, Jay Latasha Auro [employer] Security Risk Analyst/Panel Management PATIENT: ( ) Call Patient ( ) Ask Patient to ( ) ( ) Call Relative ( ) Schedule Patient ( ) ( ) Call for Employment Director ( ) Follow up on Results ( ) Other: PROVIDER: ( ) Call Physician ( ) Call Pharmacist ( ) Call Lab ( ) Other: Special Instructions: Comments: Source: Simple Document Id: [id number] Miscellaneous - Alice Wilkinson, L.P.N. - 08/15/2015 1:24 PM CDT *General Message From: ALICE WILKINSON To: BENJA PERALTA MD; Sent: 08/15/2015 13:24:44 CDT Subject: *General Message No other telephone number listed and no Emergency Contact either. Source: Simple Document Id: [id number] Deisycellaneous - Benja Bradley M.D. - 08/11/2015 1:26 PM CDT follow up Document Contains Addenda Addendum by ALICE WILKINSON on August 15, 2015 13:23:05 CDT From: ALICE WILKINSON To: BENJA PERALTA MD; Sent: 08/15/2015 13:23:05 CDT Subject: FW: follow up Addendum by ALICE WILKINSON on August 15, 2015 13:22:55 CDT His telephone number is no longer in service. If I can find another number or emergency contact, would you like me to go that route? Let me know. From: BENJA PERALTA MD To: ALICE WILKINSON; Sent: 08/11/2015 13:26:23 CDT Subject: follow up Can you please call patient and see how he is doing? I haven't heard from him in a while and see that he did not follow up with psychiatry. Benja Sweet Source: [facility] POWERCHART Document Id: [id number] Electronically signed by Conversion, [facility] Director Of Enrollment [id number] at 07/28/2016 5:36 PM CDT Miscellaneous - Benja Bradley M.D. - 05/16/2015 8:43 AM CDT referral Document Contains Addenda Addendum by BENJA PERALTA MD on May 17, 2015 15:50:09 CDT From: BENJA PERALTA MD To: [facility] Controls Project Engineer/Referrals; Sent: 05/17/2015 15:50:09 CDT Subject: RE: referral Thanks! Addendum by ЕКАТЕРИНА MCCAIN on May 17, 2015 14:55:27 CDT From: ЕКАТЕРИНА MCCAIN ([facility] Project Engineer/Referrals) To: BENJA PERALTA MD; Sent: 05/17/2015 14:55:27 CDT Subject: RE: referral [place] will call patient to schedule. They were having a bit of trouble with the order but I thinkshe said someone had it locked. For now, we will expect that they will contact us if they need changes. From: BENJA PERALTA MD To: [facility] Project Engineer/Referrals; Sent: 05/16/2015 08:43:17 CDT Subject: referral Please confirm that psych referral to Dr. Durham went through. Sorry, not willing to trust the system yet. Benja Sweet Source: [facility] Kior Document Id: [id number] Electronically signed by Conversion, [facility] Director Of Enrollment [id number] at 07/28/2016 5:36 PM CDT Steve - Benja Bradley M.D. - 05/16/2015 8:42 AM CDT Work Excuse May 16, 2015 [address] [place] [id number] Dear KURTIS COOK, You were examined in my office on: 05/16/2015 Reason for work excuse: Medical Illness ( X ) Yes ( _ ) No Injury ( _ ) Yes ( _ ) No Is excused from all work: ( _ ) Yes ( X ) No Has work limitations: ( X ) Yes ( _ ) No As follows: Patient may work for 6 hours/shift. Please allow to take 15 minute breaks as needed if symptoms worsen. Limitations apply until: _ Follow-Up Appointment : ( 2 weeks ) Return to Work date: 05/16/2015 Notes: _ Sincerely, BENJA PERALTA [address] [place] [address] [place], [place] [address] Electronic Signature Electronically Signed By: BENJA PERALTA MD On: May 16, 2015 This document has images extracted. Source: [facility] Kior Document Id: [id number] Electronically signed by Conversion, [facility] Director Of Enrollment [id number] at 07/28/2016 5:36 PM CDT Deisycellhellen - Benja Bradley M.D. - 05/16/2015 8:37 AM CDT Ambulatory Patient Summary [facility] [place] [phone] Visit Information Name: KURTIS COOK [facility] Number: [id number] Current Date: 05/16/2015 08:37:58 Physicians Attending Provider: BENJA PERALTA MD Primary Care Provider: BENJA PERALTA MD KURTIS COOK has been given the following list of follow-up instructions, medication list, and patient education materials: Follow-up Instructions Your Medications Here is a list of your medications. It is important to take your medications as directed. Use a pillbox or chart to help remind you to take your medications. Please let your doctor or nurse know if you have problems taking your medications. Medication/Strength How to Take Indications/Special Instructions/Comments/Notes for Patient Medication Changes/Routing clonazePAM (clonazePAM 0.5 mg oral tablet) 1 Tablet(s), Oral, two times a day as needed for Anxiety mood/anxiety with up to 1 prn dose daily This is a CHANGE Routed to Printer FLUoxetine (FLUoxetine 40 mg oral capsule) 1 cap, Oral, once a day mood Stop Taking the Following Medications: Medication list as of 05-16-15 08:37 Attention: If you have any medications at home that are not on this list, DO NOT take them until youcontact your provider for clarification. Give a copy of your medication list to your primary care provider. Update your medication list any time medications or doses are changed and carry your medication list at all times in case of emergency. Electronically Signed By: BENJA PERALTA MD Signed On:16-MAY-2015 08:37:44 Your Allergies & Intolerances Substance Reaction Symptoms Category Comments Ceclor Drug Your Problem List Problem Status Onset Comments Tobacco abuse Active 03/21/2011 Dysthymic Disorder Active 06/27/2011 Depression Anxiety Active 07/29/2012 Disorder Adjustment Mixed Emotion And Conduct Active Disorder Depressive Persistent (Formerly Dysthymia) NOS Active Your Upcoming Appointments Date Time Location Provider 05/17/2015 08:45 [facility] Financial Sales AdvisorMaria Fernanda Ortiz RD 05/18/2015 15:00 [facility] Behav Lamar Luo 05/25/2015 12:45 [facility] Surgkate Real MD, Beto Ortega Attention: Contact your local Clinic if further appointment detail needed. Consider Using Patient Online Services Patient Online [...] if you dont have one. Go to [email or web address] and click on Create Your Account. Then, follow the directions to complete the online form. Youll be asked for your [facility] number which you can find at the top of this document. Your Goals/Additional instructions: Source: [facility] POWERCHART Document Id: [id number] Miscellaneous - Benja Bradley M.D. - 05/16/2015 8:37 AM CDT Ambulatory Discharge Medication List [address] [id number] Visit Information Name: KURTIS COOK [facility] Number: [id number] Visit Date: 05/16/2015 08:37:57 Attending Provider: BENJA PERALTA MD Primary Care Provider: BENJA PERALTA MD KURTIS COOK has been given the following list of medications: Your Medications It is important to take your medications as directed. Use a pill box or chart to help remind you to take your medications. Please let your doctor or nurse know if you have problems taking your medications. Medication/Strength How to Take Indications/Special Instructions/Comments/Notes for Patient Medication Changes/Routing clonazePAM (clonazePAM 0.5 mg oral tablet) 1 Tablet(s), Oral, two times a day as needed for Anxiety mood/anxiety with up to 1 prn dose daily This is a CHANGE Routed to Printer FLUoxetine (FLUoxetine 40 mg oral capsule) 1 cap, Oral, once a day mood Stop Taking the Following Medications: Medication list as of 05-16-15 08:37 Attention: If you have any medications at home that are not on this list, DO NOT take them until youcontact your provider for clarification. Give a copy of your medication list to your primary care provider. Update your medication list any time medications or doses are changed and carry your medication list at all times in case of emergency. Electronically Signed By: BENJA PERALTA MD Signed On:16-MAY-2015 08:37:44 Additional Information: Source: [facility] POWERCHART Document Id: [id number] Miscellaneous - Sydni Swan L.P.N. 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 Intake/History Entered On: 05/16/2015 7:49 CDT Performed On: 05/16/2015 7:47 CDT by SYDNI SWAN LPN Intake Chief Complaint : med review Temperature Core : 36.6 DegC(Converted to: 97.9 DegF) Peripheral Pulse Rate : 68 /min Respiratory Rate : 18 /min Heart Rhythm : Regular Systolic Blood Pressure : 121 mmHg Diastolic Blood Pressure : 79 mmHg NIBP Mean : 93 mmHg BP Location : Left upper extremity Blood Pressure Cuff Size : Regular SpO2 : 99 % Oxygen Therapy : Room air Height : 178 cm(Converted to: 5 ft 10 inch(es), 70 inch(es)) Actual Weight : 95.0 kg(Converted to: 209 lb 7 oz) Weight Source : Standing scale Dosing Weight Clinic : 95 kg Clinic BSA : 2.17 Body Mass Index : 29.98 kg/m2 SYDNI SWAN LPN - 05/16/2015 7:47 CDT General Info Information Given By : Patient Languages : Maldivian Is Patient Female and 13-50 no hysterectomy : No SYDNI SWAN LPN - 05/16/2015 7:47 CDT Subjective Pain Symptoms : No SYDNI SWAN LPN - 05/16/2015 7:47 CDT Dependent Habits Exposure to Tobacco Smoke : Patient smokes Smoking Status : Light tobacco smoker Tobacco 2A : Yes Tobacco Use/Currently Using : Yes Tobacco Use/Last 30 Days : Yes Tobacco Use/Last 12 months : Yes Type : Cigarettes: Less than 20 per day Tobacco Use/Advised to Quit : No Alcohol Use : No SYDNI SWAN LPN - 05/16/2015 7:47 CDT Caffeine Use Grid Caffeine Use : Current Type : Soft drinks Frequency : Daily SYDNI SWAN LPN - 05/16/2015 7:47 CDT Recreational Drug Use Grid Drug Use : None SYDNI SWAN LPN - 05/16/2015 7:47 CDT Source: [facility] Kior Document Id: [id number] CDT!44 documented in this encounter Plan of Treatment Upcoming Encounters Date Type Specialty Care Team Description 01/12/2022 Office Visit Family Medicine Mary Ann Jerez M.D. [id number] [phone] (Wo rk) documented as of this encounter Visit Diagnoses Not on filedocumented in this encounter Additional Health Concerns Assessment Noted Time PHQ-9 Depression Total Score: 8 04/26/2015 6:33 PM SUPERVISOR TYPE PHOTOGRAPHY documented as of this encounter
--- OUTSIDE RECORDS SUMMARY | 2022-01-06 00:05 | XMS_ITS | Encounter Summary ---
:1990 Author Organization [facility] Address [address] [place] [address] Care Team Providers Name Role Phone Unavailable Primary Care Provider Unavailable Encounter Details Date Type Department Care Team Description 04/26/2015 Hospital Encounter HX [facility] PRINCIPAL JAVA SOFTWARE ENGINEER Jennifer Sparks M.D. 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 Patient asked to share what a typical day is for eating and he said he doesn't eat much. He doesn't like to eat. Patient states a lot of days he eats less than 500 calories. Has gone 2 weeks without eating. Stated he finds things about food that he talks himself out of ever wanting to eat those food items again. For example, red meat he will not eat again because of hte bloody nature of it. 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 He was 230# which was a lower wt for him than he had been, and is now 203# fully clothed with shoes on. States people called him names in school. He has always been an outcast and states that he recently tried to reach out and send messages on social media to 116 people to just get a simple hello back and he said not one person responded to him. His father in a car fire when he was really young and his mom is really religous and he doesn't like to be around her tons. Stated he has one brother who is vegan and is perfect and he gets jealous of him so he doesn't hang out with him. He has another brother who is autistic and he bothers him, and another brother whom is into drugs and can't hold a job so he also avoids him. States his fiance left him last week. He has a 1 year old son whom is all he has. Goal of being an EMT someday and also really wants to get into exercise and eating healthy but doesn't know where to start. Has even considered the alcohol diet as he just feels fat! Stated he does drink and drinks lots when he does drink. Stated that he can't even get drunk. Which then makes him not want to drink because it doesn't do anything for him. PAtient states that he works for [employer] and has a 14 hourday when he works. Also works another job which he hates. 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 Stated that job was the best thing that ever happenedto him and then he got laid off. RD discussed setting goals as patient does state he is goal driven and loves helping others. So thus, patient wants to be an EMT. RD encouraged to start working towardsgetting there. RD stated this may give him an avenue of positive role models as well as ability to meet new friends in a positive setting. Also discussed this about goign to the gym and meeting people there. Also encouraged to fuel his body. Discussed the need for nutrition. Patient stated he has no energy and all he wants to do is sleep. RD explained because he is starving himself. RD set up a meal plan for patient and encouraged to eat every 3-4 hours. Set alarm on phone to remind him it is time to eat. Also discussed being more active with exercise to help with his anxiety and nervous energy while helping him become healthier and it will also help with wt management. RD gave meal and snack ideas after patient gave the lengthy list of foods he will not eat. RD encouraged patient to try new foods. PAtient states he associates certain foods with people he has shared meals with and due to that, he avoids certain foods as it reminds him of hurtful times or happy times and that person is no longerin his life. RD encouraged patient to work towards creating a healthy relationship with food. RD to follow up with patient in 3-4 weeks and continue to offer support and suggestions for improving eating habits. RD spent 1 hour with patient today. Mary Loera MBA, HORACIO, LD Electronically Signed By: MARIA FERNANDA LOERA RDN, LD On: 04/26/2015 11:00 AM Source: [employer] Document Id: [id number] TRAINER MECHANIC documented in this encounter Plan of Treatment Upcoming Encounters Date Type Specialty Care Team Description 01/12/2022 Office Visit Family Medicine Mary Ann Jerez M.D. [address] [place] [phone] (Wo rk) documented as of this encounter Visit Diagnoses Not on filedocumented in this encounter Additional Health Concerns Assessment Noted Time PHQ-9 Depression Total Score: 8 04/26/2015 6:33 PM LINK TRAINER MECHANIC documented as of this encounter
--- OUTSIDE RECORDS SUMMARY | 2022-01-06 00:05 | XMS_ITS | Encounter Summary ---
:1990 Author Organization [facility] Address [address] [place] [address] Care Team Providers Name Role Phone Unavailable Primary Care Provider Unavailable Encounter Details Date Type Department Care Team Description 07/29/[address] [facility] FAMILY ME Shefali Broussard, Chandra EARL.N.P., D. N.P. [address] [place] [address] (Wo rk) Social History Tobacco Use Types Packs/Day Years Used Date Smoking Tobacco: Never Assessed Sex Assigned at Date Recorded Not on file documented as of this encounter Last Filed Vital Signs Vital Sign Reading Time Taken Comments Blood Pressure 132/72 07/29/2012 2:43 PM CDT Pulse 92 07/29/2012 2:43 PM CDT Temperature - - Respiratory Rate 16 07/29/2012 2:43 PM CDT Oxygen Saturation - - Inhaled Oxygen Concentration - - Weight 86.1 kg (189 lb 13.1 oz) 07/29/2012 2:43 PM CDT Height 176.4 cm (5' 9.45) 07/29/2012 2:43 PM CDT Body Mass Index 27.67 07/29/2012 2:43 PM CDT documented in this encounter Progress Notes Shefali Broussard, Percy.N.P., C.N.P. - 07/29/2012 2:33 PM CDT [id number] CHIEF COMPLAINT/REASON FOR VISIT Depression. HISTORY OF PRESENT ILLNESS The patient is a 22year-old male that presents to the clinic today to follow up on his depression. He indicates that he did not follow-up previously. He was on citalopram taking daily but indicates he has been off of it now for quite a while as he indicates I didn't think I really needed any longer.He indicates that he currently is not taking any medications at this time, but indicates that currently in his relationship he is having some significant issues with his depression. He also indicates that he is having some significant problems with anxiety. He denies any suicidal ideation. He is wondering if he can start back on his citalopram and also if wondering if he can get something to help with his anxiety in which he indicates that he just does not want to fly off the handle. PAST MEDICAL/SURGICAL HISTORY Reviewed. Please see chart. FAMILY HISTORY Reviewed. Please see chart. CURRENT MEDICATIONS Reviewed. Please see chart. ALLERGIES Reviewed. Please see chart. PHYSICAL EXAMINATION GENERAL: The patient is an alert, well-nourished, 22year-old male that appears to be in no acute distress. HEAD: Normocephalic, atraumatic. Remainder of further examination deferred at this time. PHQ-9 score was noted to be a total of 10 with a score of 0 on question number 9. KHALIDA-7 score was a total of 20. IMPRESSION/REPORT/PLAN Depression with anxiety. PLAN: Discussed the overall findings with the patient. Presently, at this time,, the patient was started back on his citalopram 20 mg tablets with instructions to take 1/2 tablet by mouth daily for 5 days then take 1 tablet by mouth daily, number 30 tablets with no refills were authorized. The patientis advised that he is to contact the clinic, speak with the nurse triage department and get an updated PHQ-9 for me in the next 2 to 3 weeks duration in which at that time we will determine further treatment at that time. Per the patient's request, I did provide him with Xanax given his KHALIDA-7 score, 0.25 mg tablets to take 1 tablet by mouth up to three times a day as needed for anxiety, #30 tablets with no refills were authorized. Advised this is a controlled substance and can be habit-forming as caution was advised. Patient stated he understands this plan as he otherwise denied having any further questions or concerns. Patient ambulated out of the clinic in no acute distress. PATIENT EDUCATION: Ready to learn No apparent learning barriers were identified Learning preferences include listening Explained diagnosis and treatment plan Patient/Child/Caregiver expressed understanding of the content Shefali Broussard D.N.P./Aysha Electronically Signed By: SHEFALI BROUSSARD DNP, FNP On: 07/29/2012 04:49 PM Source: [facility] MHSDOLBEYNONRADSYS Document Id: [id number] documented in this encounter Miscellaneous Notes Miscellaneous - Shefali Broussard D.N.P., Chandra.N.P. - 07/29/2012 3:10 PM CDT Ambulatory Patient Summary [address] [place] [address] Visit Information Name: KURTIS COOK [facility] Number: [id number] Current Date: 07/29/2012 15:10:35 Physicians Attending Provider: SHEFALI BROUSSARD DNP, FNP Primary Care Provider: HOLA HOOKS NP Your Medications Here is a list of your medications. It is important to take your medications as directed. Use a pillbox or chart to help remind you to take your medications. Please let your doctor or nurse know if you have problems taking your medications. Medication/Strength Dose Route Frequency Indications/Special Instructions/Comments alprazolam (Xanax 0.25 mg oral tablet) 0.25 mg Oral three times a day as needed for Anxiety citalopram (citalopram 20 mg oral tablet) See Instructions Take 1/2 tab by mouth daily for 5 days, then take 1 tab daily. Attention: If you have any medications at home that are not on this list, DO NOT take them until youcontact your provider for clarification. Your Allergies & Intolerances Substance Reaction Symptoms Category Comments Ceclor Drug Your Problem List Problem Status Onset Comments Tobacco abuse Active 03/21/2011 Dysthymic Disorder Active 06/27/2011 Depression with anxiety (dysthymic) Active 07/29/2012 Your Upcoming Appointments Date Time Location Reason Provider No Appointments found Your Goals/Additional instructions: Source: [facility] POWERCHART Document Id: [id number] Miscellaneous - Shefali Broussard D.N.Mercedes, C.N.P. - 07/29/2012 3:10 PM CDT Ambulatory Depart Summary [address] [place] [address] Visit Information Name: KURTIS COOK [facility] Number: [id number] Visit Date: 07/29/2012 15:10:35 Attending Provider: SHEFALI BROUSSARD DNP, MUSIC STORE MANAGER Primary Care Provider: HOLA HOOKS NP KURTIS COOK has been given the following list of medications: Your Medications It is important to take your medications as directed. Use a pill box or chart to help remind you to take your medications. Please let your doctor or nurse know if you have problems taking your medications. Medication/Strength Dose Route Frequency Indications/Special Instructions/Comments alprazolam (Xanax 0.25 mg oral tablet) 0.25 mg Oral three times a day as needed for Anxiety citalopram (citalopram 20 mg oral tablet) See Instructions Take 1/2 tab by mouth daily for 5 days, then take 1 tab daily. Attention: If you have any medications at home that are not on this list, DO NOT take them until youcontact your provider for clarification. Additional Information: Source: [facility] [employer] Document Id: [id number] Miscellaneous - Mikhail Montoya L.P.N. - 07/29/2012 2:45 PM CDT PHQ-9 PHQ-9 Entered On: 07/29/2012 19:09 CDT Performed On: 07/29/2012 14:45 CDT by MIKHAIL MONTOYA LPN PHQ-9 Little interest or pleasure in doing things : Several days Feeling down, depressed, or hopeless : More than half the days Trouble falling or staying asleep, or sleeping too much : Not at all Feeling tired or having little energy : More than half the days Poor appetite or overeating : Not at all Feeling bad about yourself or that you are a failure : More than half the days Trouble concentrating on things : More than half the days Moving or speaking slowly; restless or fidgety : Several days Thoughts that you would be better off /hurting self : Not at all PHQ-9 Calculated Score : 10 Problems make work, home, or dealing with others : Somewhat difficult MIKHAIL MONTOYA LPN - 07/29/2012 19:08 CDT Source: [employer] Document Id: [id number] CDT!13 Miscellaneous - Mikhail Montoya L.P.N. 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 Business Operations Consultant Intake/History Adult Business Operations Consultant Intake/History Entered On: 07/29/2012 14:47 CDT Performed On: 07/29/2012 14:43 CDT by MIKHAIL MONTOYA LPN Intake Chief Complaint : Stopped taking antidepressandts, and thinks needs them back, something for anxiety Temperature Core : 36.8 DegC(Converted to: 98.2 DegF) Peripheral Pulse Rate : 92 /min Respiratory Rate : 16 /min Heart Rhythm : Regular Systolic Blood Pressure : 132 mmHg Diastolic Blood Pressure : 72 mmHg NIBP Mean : 92 mmHg BP Location : Right upper extremity Blood Pressure Cuff Size : Regular SpO2 : 99 % Oxygen Therapy : Room air Height : 176.4 cm(Converted to: 5 ft 9 inch(es), 69.45 inch(es)) Actual Weight : 86.1 kg(Converted to: 189 lb 13 oz) Weight Source : Standing scale Dosing Weight Clinic : 86.1 kg Clinic BSA : 2.05 Body Mass Index : 27.67 kg/m2 MIKHAIL MONTOYA LPN - 07/29/2012 14:43 CDT General Info Information Given By : Patient Languages : [place] Arabian MIKHAIL MONTOYA LPN - 07/29/2012 14:43 CDT Subjective Pain Symptoms : No MIKHAIL MONTOYA LPN - 07/29/2012 14:43 CDT Dependent Habits Tobacco Use/Currently Using : Yes Tobacco Use/Advised to Quit : Yes Exposure to Tobacco Smoke : Patient smokes Smoking Status : Current every day smoker MIKHAIL MONTOYA LPN - 07/29/2012 14:43 CDT Tobacco Use Grid Type : Cigarettes Cigarette Use Packs/Day : 1.0 MIKHAIL MONTOYA LPN - 07/29/2012 14:43 CDT Alcohol Use : Yes MIKHAIL MONTOYA LPN - 07/29/2012 14:43 CDT Caffeine Use Grid Caffeine Use : None MIKHAIL MONTOYA LPN - 07/29/2012 14:43 CDT Recreational Drug Use Grid Drug Use : None MIKHAIL MONTOYA LPN - 07/29/2012 14:43 CDT Source: [employer] Document Id: [id number] CDT!41 Miscellaneous - Mikhail Montoya L.P.NMatias - 07/29/2012 2:43 PM CDT Health Assessment Health Assessment Entered On: 07/29/2012 14:48 CDT Performed On: 07/29/2012 14:43 CDT by MIKHAIL MONTOYA LPN Health Assessment Complete Health Assessment Complete or Modified : Annual Health Assessment Annual Health Assessment Completed : Yes MIKHAIL MONTOYA LPN - 07/29/2012 14:43 CDT Nutrition Nutrition Risk Factors by History Adult : None MIKHAIL MONTOYA LPN - 07/29/2012 14:43 CDT Functional Current Daily Living Assistance : None MIKHAIL MONTOYA LPN - 07/29/2012 14:43 CDT Dependent Habits Tobacco Use/Currently Using : Yes Exposure to Tobacco Smoke : Patient smokes Smoking Status : Current every day smoker MIKHAIL MONTOYA LPN - 07/29/2012 14:43 CDT Tobacco Use Grid Type : Cigarettes Cigarette Use Packs/Day : 1.0 MIKHAIL MONTOYA LPN - 07/29/2012 14:43 CDT Caffeine Use Grid Caffeine Use : Current Type : Soft drinks Frequency : Daily MIKHAIL MONTOYA LPN - 07/29/2012 14:43 CDT Recreational Drug Use Grid Drug Use : None JUSTINOMIKHAIL LPN - 07/29/2012 14:43 CDT Psychosocial Domestic Abuse Concerns : None MONTOYAMIKHAIL LPN - 07/29/2012 14:43 CDT Advance Directive Advanced Directives : No Advance Directive Additional Information : No MIKHAIL MONTOYA LPN - 07/29/2012 14:43 CDT Educ Needs Learning Style Preference Adult Grid Patient : None Family : None MIKHAIL MONTOYA LPN - 07/29/2012 14:43 CDT Source: [employer] Document Id: [id number] CDT!33 documented in this encounter Plan of Treatment Upcoming Encounters Date Type Specialty Care Team Description 01/12/2022 Office Visit Family Medicine Mary Ann Jerez M.D. [address] [phone] (Wo rk) documented as of this encounter Visit Diagnoses Not on filedocumented in this encounter Additional Health Concerns Assessment Noted Time PHQ-9 Depression Total Score: 10 07/29/2012 2:45 PM CD T documented as of this encounter
--- OUTSIDE RECORDS SUMMARY | 2022-01-06 00:05 | XMS_ITS | Encounter Summary ---
:1990 Author Organization [facility] Address [address] [place] [address] Care Team Providers Name Role Phone Unavailable Primary Care Provider Unavailable Encounter Details Date Type Department Care Team Description 05/16/2010 Hospital Encounter HX [facility] [place] Brian Lacy M.D. [address] [phone] (Wo rk) Social History Tobacco Use Types Packs/Day Years Used Date Smoking Tobacco: Never Assessed Sex Assigned at Date Recorded Not on file documented as of this encounter Progress Notes Brian Lacy M.D. - 05/16/2010 12:00 AM CDT [id number] CHIEF COMPLAINT/REASON FOR VISIT: 1. Question herpes infection. HISTORY OF PRESENTING ILLNESS: The patient is a 19 -year-old male with a history of a single sexual partner (a new sexual partner) over the last one month. The patient has noted a tingling in the right lateral side glands of the penis and noted an eruption of some blisters over the past 48 hours. He reports that he has uniformly used a condom during intercourse throughout the last month and previous to that. He denies any previous eruptions or rash in the genital area at any time. He denies urinary frequency, urgency or discharge. PAST MEDICAL/SURGICAL HISTORY: The patient has had a monogamous sexual relationship over the past one month with a new sexual partner. Sexual partner is reported to be asymptomatic in all ways. Neither are patient or his sexual partner aware of any past history of any sexually transmitted diseases. There is no history of sex with men, no history of immunodeficiency, no history of random sexual partners, although the patient has had consensual intercourse with several people in the last couple of years. PHYSICAL EXAMINATION Healthy appearing 19 year-old, in no distress. GENITOURINARY: Reveals a small, erythematous patch on the glans of the penis. There are multiple small vesicles in this area with one satellite lesion approximately 2 centimeters away on the shaft of the penis. There is no adenopathy, no urethral inflammation, no urethral discharge. IMPRESSION/REPORT/PLAN: Completely compatible with uncomplicated primary herpes simplex. 1. Herpes simplex (uncomplicated). PLAN: Diagnostic, none further. No moist lesions present. Therapeutic Valacyclovir one gram twice a day x seven days. The patient has already discussed this with his sexual partner. She is going to be receiving evaluation and RX. I told the patient that a single episode of uncomplicated primary herpes would require evaluation which should become recurrent. He uses condom for intercourse on all occasions at the present time and will continue to do so. He is to refrain from intercourse until the lesions are resolved. He agrees. [facility], he agrees to access this this afternoon. Follow-up with us as needed. Brian Lacy M.D. /scott Electronically Signed By: BRIAN LACY MD On: 05/23/2010 12:15 Source: [facility] MHSDOLBEYNONRADSYS Document Id: [id number] documented in this encounter Miscellaneous Notes Miscellaneous - Carly Briones, L.P.N. - 05/16/2010 3:36 PM CDT Adult Continuity Tester Intake/History Adult Continuity Tester Intake/History Entered On: 05/16/2010 15:40 CDT Performed On: 05/16/2010 15:36 CDT by CARLY BRIONES LPN Intake Chief Complaint: ? Herpes Onset of Symptoms: 2days Temperature Core: 37.0C(Converted to: 98.6DegF) Peripheral Pulse Rate: 76/min Respiratory Rate: 18/min Systolic Blood Pressure: 108mmHg Diastolic Blood Pressure: 64mmHg NIBP Mean: 79mmHg BP Location: Left upper extremity Actual Weight: 86.100kg(Converted to: 189lb 13oz) Dosing Weight Clinic: 86.10kg CARLY BRIONES LPN - 05/16/2010 15:36 CDT Subjective Pain Symptoms: No CARLY BRIONES LPN - 05/16/2010 15:36 CDT Dependent Habits Tobacco Use/Currently Using: Yes Tobacco Use/Advised to Quit: Yes Alcohol Use: No CARLY BRIONES LPN - 05/16/2010 15:36 CDT Caffeine Use Grid Caffeine Use: Current Type: Soft drinks Frequency: Daily CARLY BRIONES LPN - 05/16/2010 15:36 CDT Allergies Allergies (Active) Ceclor Estimated Onset Date: Unspecified ; Created By: CARLY BRIONES LPN; Reaction Status: Active ; Category: Drug ; Substance: Ceclor ; Type: Allergy ; Updated By: CARLY BRIONES LPN; Reviewed Date: 05/16/2010 13:31 CDT Source: [employer] Document Id: [id number] CDT!24 documented in this encounter Plan of Treatment Upcoming Encounters Date Type Specialty Care Team Description 01/12/2022 Office Visit Family Medicine Mary Ann Jerez M.D. [address] [phone] (Wo rk) documented as of this encounter Visit Diagnoses Not on filedocumented in this encounter
--- OUTSIDE RECORDS SUMMARY | 2022-01-06 00:05 | XMS_ITS | Encounter Summary ---
:1990 Author Organization [facility] Address [address] [place] [address] Care Team Providers Name Role Phone Unavailable Primary Care Provider Unavailable Encounter Details Date Type Department Care Team Description 04/20/2015 Hospital Encounter HX [facility] Yamila Bacon, Ph.D., M.A., L.M.F.T. 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 [phone] [place] [phone] (Wo rk) documented as of this encounter Visit Diagnoses Not on filedocumented in this encounter Additional Health Concerns Assessment Noted Time PHQ-9 Depression Total Score: 16 04/20/2015 8:47 AM CS T documented as of this encounter
--- OUTSIDE RECORDS SUMMARY | 2022-01-06 00:05 | XMS_ITS | Encounter Summary ---
:1990 Author Organization [facility] Address [address] [place] [address] Care Team Providers Name Role Phone Elsewhere, Pcp Primary Care Provider Unavailable Reason for Referral Outpatient (Routine) - Authorized Specialty Diagnoses / Procedures Referred By Contact Refer red To Contact Emergency Medicine Diagnoses Upper Abdominal Pain Unspecified Alex Enriquez [facility] C.N.P. [address] [place] [address] Referral ID Status Reason Start Date Expiration Date Visits V isits Requested Authorized [id number] Authorized 12/20/2021 12/19/2024 1 1 Reason for Visit Reason Comments Abdominal Pain Presents with worsening naus ea and upper abdominal burning Encounter Details Date Type Department Care Team Description 12/20/2021 Emergency [place] [facility] Alex Enriquez U pper Abdominal Pain Department C.N.P. Unspecified (Primary [address] [place] [address] [address] [place]x) [place] [address] [place] [phone] (Wo rk) Social History Tobacco Use Types [...] 1.6 oz) 12/20/2021 5:57 PM CDT Height - - Body Mass Index 34.09 05/16/2015 7:47 AM CDT documented in this encounter Discharge Instructions Discharge InstructionsStAlex harris, C.N.P. - 12/20/2021 6:49 PM CDT This is probably GERD but could very well be ulcerative disease. Take the medications until finished. I gave you 1 month Protonix. You need to follow-up within a week or 2 with family medicine. They will refill your Protonix from there on out. Return to the emergency department for any worsening pain,nausea, vomiting, fever, chills, sweats or other worrisome symptoms. Thank you for utilizing [facility] for your care! AttachmentsThe following attachments cannot be sent through Care Everywhere. Gastroesophageal Reflux Disease Adult Fxqo-vj-Unij (Slovenian)documented in this encounter Medications at Time of Discharge Medication Sig Dispensed Refills Start Date End Date famotidine (PEPCID) 20 mg Take 20 mg by mouth 0 tablet 2 (two) times a day. omeprazole (PriLOSEC) 20 Take 20 mg by mouth [address] capsule every morning before breakfast. pantoprazole (PROTONIX) Take 1 tablet (40 mg 30 tablet 0 01/19/2022 40 mg EC tablet total) by mouth every morning before breakfast. sucralfate (CARAFATE) 1 Take 1 tablet (1 g 28 tablet 0 12/0212/27/2021 gram tablet total) by mouth every 6 (six) hours for 7 days. documented as of this encounter ED Notes Alex Enriquez, C.N.P. - 12/20/2021 5:51 PM CDT Images from the original note were not included. CHIEF COMPLAINT/REASON FOR VISIT Abdominal Pain (Presents with worsening nausea and upper abdominal burning) HISTORY OF PRESENT ILLNESS Patient with a past medical history of persistent depressive disorder, anxiety, dysthymia, presents to the emergency department with complaints abdominal pain. Patient states he is had intermittent abdominal pain and burning in the epigastric region for over ayear. Patient states was placed on omeprazole by his doctor dimas panda. He was unsure the dose. Themedication ran out, and then he has been using [id number]-[id number] omeprazole. Patient states that is not been very effective. Certain spicy foods will increase the burning. Patient states if he does not eat he gets severe burning, and when he does eat afterwards he feels some nausea. He states the severe burning happens roughly 2 weeks out of every month. He denies any vomiting, fever, chills, sweats. He has loose stool. He denies any bright red blood or black stool. Patient carries diagnosis of GERD. Patient states I think I might have an ulcer because when I get stress this all gets worse. History provided by: Patient REVIEW OF SYSTEMS Constitutional: Negative for chills, diaphoresis, fatigue and fever. HENT: Negative for sinus pressure and sore throat. Respiratory: Negative for cough, chest tightness and shortness of breath. Cardiovascular: Negative for chest pain. Gastrointestinal: Positive for abdominal pain. Negative for constipation, diarrhea, nausea and vomiting. Genitourinary: Negative for dysuria, frequency and urgency. Musculoskeletal: Negative for arthralgias and myalgias. Skin: Negative for rash. Neurological: Negative for dizziness, weakness and headaches. Hematological: Negative for adenopathy. Does not bruise/bleed easily. All other systems reviewed and are negative. Allergies Reviewed in medical record Current Medications Reviewed in Medical Record. PAST HISTORY Medical History reviewed. No pertinent past medical history. Patient Active Problem List Diagnosis Persistent Depressive Disorder Depression Anxiety Dysthymia Surgical History reviewed. No pertinent surgical history. Family Reviewed in Medical Record Social History Social History Tobacco Use Smoking status: Light Smoker Smokeless tobacco: Not on file Substance Use Topics Alcohol use: Not on file Social History Substance and Sexual Activity Drug Use Not on file OBJECTIVE Initial Vital Signs / Weights Initial Vitals Temperature Pulse Rate Heart Rate Resp Rate Blood Pressure SpO2 12/20/21 1753 12/20/21 1753 -- 12/20/21 17512/20/21 17512/20/21 175 36.8 ??C 90 16 (!) 126/95 99 % Pain Score 12/20/21 1759 6 Wt Readings from Last 3 Encounters: 12/20/21 108 kg PHYSICAL EXAMINATION Constitutional: Nursing note and vitals reviewed. No distress. HENT: Mouth/Throat: Oropharynx is clear and moist. Mucous membranes are moist. No tonsillar exudate. Eyes: Conjunctivae and EOM are normal. Pupils are equal, round, and reactive to light. Neck: Neck supple. Cardiovascular: Normal rate, regular rhythm, S1 normal, S2 normal and normal heart sounds. Pulses are strong and palpable. No murmur heard.Capillary refill: takes less than 3 seconds Pulmonary/Chest: Effort normal and breath sounds normal. There is normal air entry. No respiratory distress. Abdominal: Soft. Bowel sounds are normal. exhibits no distension. There is no abdominal tenderness (No epigastric or abdominal tenderness to palpation). There is no rebound and no guarding. Musculoskeletal: General: Normal range of motion. Cervical back: Normal range of motion and neck supple. Lymphadenopathy: He has no cervical adenopathy. Neurological: Alert and oriented to person, place, and time. No cranial nerve deficit. Skin: Skin is warm, dry and intact. Psychiatric: He has a normal mood and affect. DIAGNOSTICS Labs Labs Reviewed CBC WITH DIFFERENTIAL, B Result Value Hemoglobin 15.5 Hematocrit 45.6 Erythrocytes 5.50 MCV 82.9 RBC Distrib Width 12.6 Platelet Count 228 Leukocytes 6.0 Neutrophils 3.77 Lymphocytes 1.73 Monocytes 0.43 Eosinophils <0.04 Basophils <0.04 COMPREHENSIVE METABOLIC PANEL, S/P Potassium, P 4.1 Sodium, P 140 Chloride, P 103 Bicarbonate, P 24 Anion Gap, P 13 BUN (Blood Urea Nitrogen), P 13 Creatinine 1.11 Estimated GFR (eGFR) >90 Calcium, Total, P 9.6 Glucose, P 104 Protein, Total, P 7.3 Albumin, P 4.8 Aspartate Aminotransferase (AST), P 29 Alkaline Phosphatase, P 68 Alanine Aminotransferase (ALT), P 47 Bilirubin, Total, P 0.5 LIPASE, S/P Lipase, P 30 ED COURSE ED Course as of 12/20/211850Dec 20, [id number] I performed my initial evaluation of the patient. We discussed Emergency Department course including testing, treatment, and potential disposition based on findings. 1829 Patient is completely pain-free after the GI cocktail. 1840 CMP and Lipase all WNL. With negative abdominal exam and no evidence of surgical catastrophic abdomen don't feel advanced imaging is worthwhile tonight. Will cover with PPI at appropriate dosing and carafate with PMD follow up. Probably needs endo to rule out ulcerative disease. 1842 I discussed the plan for discharge with the patient, and patient/family is agreeable. I discussed with patient the utility, limitations, and findings of the exam/interventions/studies done during this visit as well as the list of differential diagnosis. Patient understands provisional nature of this diagnosis and need for follow up. We discussed the plan of care, including supportive cares. We also discussed symptoms to monitor and symptoms that should prompt them to return for re-evaluation including new or worsening symptoms. All questions and concerns addressed. Patient to be discharged by RN. Final Diagnoses: as of 12/20/21 185 Upper Abdominal Pain Unspecified - Epigastric INTERVENTIONS Medications lidocaine viscous 2 % 15 mL, alum-mag hydroxide-simeth 30 mL susp (45 mL oral Given 12/20/21 1808) MEDICAL DECISION MAKING IMPRESSION AND PLAN Patient presents to the emergency department with complaints of epigastric burning. Symptoms have been present for roughly on and off for 1 year. Patient does have a history of GERD. Has been on omeprazole in the past although he is not sure of the dose. Now he states he just takes Prilosec [id number]-azi-svnugcl. He takes 1 tablet and tries to get every day. Differential diagnosis includes but not limited to abdominal pain, GERD, ulcerative disease, cholelithiasis, cholecystitis, liver disease, pancreatitis, or others. Exam is very reassuring. Pain is described as burning and very mild. Abdominal exam is entirely normal. Will get a CBC, CMP and lipase to rule out other causes but more than likely this is just breakthrough GERD and or possible peptic ulcer disease. Patient was given a GI cocktail with complete resolution of his symptoms. Disposition pending labs Hemoglobin is 15.5, with a hematocrit of 45.6. This is reassuring that there is not significant acute blood loss. CMP and lipase are also negative. Again I doubt that this is a surgical abdomen as there are no peritoneal signs and patient is extremely comfortable. No pain with palpation of the abdomen. As more than likely is GERD and he is just not on enough PPI but could be ulcerative disease. Will start him on Protonix 40 mg every day as well as Carafate for 1 week. Patient was instructed to follow-up with family Medicine in a week or 2 for reassessment. A referral was placed. Patient was given red flag signs & symptoms that would require immediate followup or return to the ED. I reviewed previous medical records including lab results and documentation from previous visits. DIAGNOSIS Final diagnoses: [R10.10] Upper Abdominal Pain Unspecified - Epigastric DISPOSITION DISCHARGE/TRANSFER VITAL SIGNS Vitals: 12/20/21 1753 BP: (!) 126/95 Pulse: 90 Resp: 16 Temp: 36.8 ??C SpO2: 99% ED DISCHARGE MEDS ED Prescriptions Medication Sig Dispense Start Date End Date Auth. Provider pantoprazole (PROTONIX) 40 mg EC tablet Take 1 tablet (40 mg total) by mouth every morning before breakfast. 30 tablet 12/20/2021 01/19/2022 Alex Enriquez, C.N.P. sucralfate (CARAFATE) 1 gram tablet Take 1 tablet (1 g total) by mouth every 6 (six) hours for 7 days. 28 tablet 12/20/2021 12/27/2021 Alex Enriquez, C.N.P. FOLLOW UP Consults and Follow-ups to Schedule POST ED VISIT Family Medicine Dec 20, 2021 (Approximate) Region: [facility] ED Visit F/U Specialty?: Family Medicine Contact Information for Follow-ups Department of Family Medicine, [facility], in [place], [place] Specialty: Family Medicine [address] [place] [phone] Next Steps: Follow up in 1 week(s) Alex Enriquez, ALBIN, BOTTLE WASHER MACHINE, BRINE MAKER-C, AGACNP-BC, ENP-C Emergency Medicine Alex Enriquez, C.N.P. 12/20/21 185 documented in this encounter Plan of Treatment Upcoming Encounters Date Type Specialty Care Team Description 01/12/2022 Office Visit Family Medicine Mary Ann Jerez M.D. [address] [place] [phone] (Wo rk) Scheduled Referrals Name Type Priority Associated Diagnoses Order S chedule POST ED VISIT Outpatient Referral Routine Upper Abdominal Pain Expected: Family Medicine Unspecified 12/20/2021 (Approximate), Expires: 03/22/2023 documented as of this encounter Procedures Procedure Name Priority Date/Time Associated Comments Diagnosis CBC WITH DIFFERENTIAL, STAT 12/20/2021 6:14 PM Results for this B CDT procedure are i n the results section. LIPASE, S/P STAT 12/20/2021 6:14 PM Results f or this CDT procedure are i n the results section. COMPREHENSIVE STAT 12/20/2021 6:14 PM Results for this METABOLIC PANEL, S/P CDT procedu re are in the results section. documented in this encounter Results Lipase (12/20/2021 6:14 PM CDT) athologist Signature Lipase, P 30 13 - 60 U/L 12/20/2021 6:35 CNFL PM CDT Specimen Anatomical Collection Method Collection Time Receive d Time (Source) Location / / Volume Laterality Blood (Blood, 12/20/2021 6:14 PM 12/21/19 6:16 Venous) CDT PM CDT Alex Enriquez C.N.P. LAB BLOOD ADD-ON Performing Organization Address City/State/[facility] Code Phon e Number [address] [phone] [place] [address] System [address] Comprehensive Metabolic Panel (12/20/2021 6:14 PM CDT) athologist Signature Potassium, P 4.1 3.6 - [...] Organization Address City/State/ZIP Code Phon e Number [address] [phone] [place] [address] System [address] CBC with Differential, Blood (12/20/2021 6:14 PM [...] Laterality Blood (Blood, 12/20/2021 6:14 PM 12/21/19 22 6:16 Venous) CDT PM CDT Alex Enriquez C.N.P. LAB BLOOD ADD-ON Performing Organization Address City/State/ZIP Code Phon e Number [facility]- [address] [place] [phone] [place] [address] [address] documented in this encounter Visit Diagnoses Diagnosis Upper Abdominal Pain Unspecified - Prima ry documented in this encounter Administered Medications Inactive Administered Medications - up to 3 most recent administrations Medication Order MAR Action Action Date Dose Rate Site lidocaine viscous 2 % 15 mL, Given 12/20/2021 6:08 PM CDT 45 mL alum-mag hydroxide-simeth 30 mL susp 45 mL, oral, Once, On Sat12/20/21 at 1805, For 1 dose, Mix ingredients prior to administration documented in this encounter Active and Recently Administered Medications Times are shown in CDT. 

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
--- OUTSIDE RECORDS SUMMARY | 2022-01-06 00:05 | XMS_ITS | Encounter Summary ---
:1990 Author Organization [facility] Address [address] [place] [address] Care Team Providers Name Role Phone Unavailable Primary Care Provider Unavailable Encounter Details Date Type Department Care Team Description 04/20/2015 Hospital Encounter HX [facility] Benja Sparks M.D. [address] [place] [phone] (Wo rk) Social History Tobacco Use Types Packs/Day Years Used Date Smoking Tobacco: Never Assessed Sex Assigned at Date Recorded Not on file documented as of this encounter Last Filed Vital Signs Vital Sign Reading Time Taken Comments Blood Pressure 112/71 04/20/2015 9:13 AM [employer] Pulse 62 04/20/2015 9:13 AM [employer] Temperature - - Respiratory Rate 16 04/20/2015 9:13 AM [employer] Oxygen Saturation - - Inhaled Oxygen Concentration - - Weight 93.8 kg (206 lb 12.7 oz) 04/20/2015 9:13 AM [employer] Height 178 cm (5' 10.08) 04/20/2015 9:13 AM [employer] Body Mass Index 29.6 04/20/2015 9:13 AM [employer] documented in this encounter Progress Notes Benja Bradley M.D. - 04/20/2015 6:49 AM CST Clinic Full Note CHIEF COMPLAINT/REASON FOR VISIT Here for medication change update. Acknowledges poor nutrition might be cause of bilateral knee joint aching. HISTORY OF PRESENT ILLNESS Kurtis presents today to follow up on mood. He saw the psychologist prior to seeing me today. He has been taking the clonazepam and Prozac daily. He does think that the clonazepam seems to help pick him up and get him out doing things. Sometimes he still feels more sad and depressed. At other times,he feels like he is thinking faster and feels like he can focus and is happier. He feels drowsy fromthe medications and still describes himself as feeling anxious and worried. He has no interest in eating and has not felt hungry. Weight is down another 3 pounds and in total he has lost approximately 25 pounds. He is concerned about developing an eating disorder. He does not want to eat junk food andis afraid of overeating. He has been drinking a significant amount of alcohol approximately 3 full classes of a mixed drink each night. He reports that alcohol makes him feel good and helps him to meetto others. To get out of the house, he has been spending a lot of time at the bar. Even though he isgoing to the bar, he states he just has no motivation to do anything at all. He is not sleeping welland does not feel the need to sleep. He denies any drug use. He has found a new place and will hopefully move there the beginning of May. He just needs to get his funds together. 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 SOCIAL HISTORY Date Time: 04/20/2015 09:13 Tobacco: Smoking Status: Current every day smoker Exposure: Patient smokes Alcohol: Use: Yes Recreational Drugs: Use: None Type: No Results Found FAMILY HISTORY Mother (Ankit):Positive: Chronic pain syndrome; Degenerative joint disease; Depression; Generalized anxiety disorder; Hypercholesterolemia; Hypertension; Obesity; Seizure disorder Father: Negative: Brother: Negative: Brother: Negative: Brother: Negative: SYSTEMS REVIEW As per HPI. Patient also notes concerns of a lump to his back that has been there since he was 18. It has been getting larger. VITAL SIGNS T: 36.7 ??C (Core) HR: 62 RR: 16 BP: 112 / 71 SpO2: 98% HT: 178 cm WT: 93.8 kg BMI: 29.6 PHYSICAL EXAMINATION GENERAL: Patient is alert and oriented he is experiencing some mental distress. Skin: On patient's upper back, there is a well circumcised subcutaneous lump measuring about 2 cm with normal overlying skin. Psychiatric: Mood is variably described as sad, depressed, happier, and anxious. Affect is labile. Thought process is a little circumstantial. Speech is more rapid today. Insight and judgment are likely still appropriate although patient does note some riskier behaviors. He denies any suicidal intention or plan but he does note passive thoughts that it would be better if he was not here. IMPRESSION/REPORT/PLAN 1. Disorder Adjustment With Anxious Mood Patient continues to feel significant distress regarding his recent breakup and current living situation. Today his speech does seem a little more rapid and he describes thinking faster and not needing to sleep. This does somewhat raise a concern for possible tiffany potentially induced by the antidepressant. I think it is still just likely more related to the anxiety he is feeling. We are going to continue the current doses of his medications. He will follow up with Lamar again in 2 weeks. We will see him back in 1 week. He was encouraged to stop drinking alcohol. He is also worried about his eating so we will refer him to a dietitian. Initially I gave him on note to stay out of work for another week. After speaking with the psychologist, we determined it would be better for him to return so a new note was generated. Ordered: OV Est Pt Level 4 - [address]4527 - 25 min 2. Disorder Depressive Persistent (Formerly Dysthymia) NOS As above. Ordered: OV Est Pt Level 4 - 96908 - 25 min 3. Lump Skin We will refer him to general surgery to further assess and potentially remove. 4. Loss Weight We are going to refer to the dietitian to aid in healthy eating decisions to maintain his weight. Electronically Signed By: BENJA PERALTA MD On: 04/23/2015 06:55 AM Source: [email or web address] Document Id: [id number] ING WHEEL FILLER documented in this encounter Miscellaneous Notes Miscellaneous - Cristian Guerra Benja S, M.D. - 04/20/2015 3:12 PM [employer] Work Excuse 20 April [address]OOK [address] [place] [phone] Dear KURTIS COOK, You were examined in my office on: 04/20/2015 Reason for work excuse: Medical Illness ( X ) Yes ( _ ) No Injury ( _ ) Yes ( _ ) No Is excused from all work: ( _ ) Yes ( X ) No Has work limitations: ( X ) Yes ( _ ) No As follows: 4 hour shift; Kurtis may need to take break or leave early based on his symptoms. Limitations apply until: Follow-Up Appointment : ( 04/26/2015 ) Return to Work date: 04/21/2015 Notes: _ Sincerely, BENJA PERALTA [address] [place] [address] [place] [address] Electronic Signature Electronically Signed By: BENJA PERALTA MD On: 20 April 2015 This document has images extracted. Source: [facility] POWERCHART Document Id: [id number] Electronically signed by Conversion, [facility] [employer] Fabricating Machine Tender [id number] at 07/28/2016 9:08 AM CDT Benja Whitley M.D. - 04/20/2015 10:11 AM [employer] Work Excuse 20 April [address] [place] [phone] Dear KURTIS COOK, You were examined in my office on: 04/20/2015 Reason for work excuse: Medical Illness ( X ) Yes ( _ ) No Injury ( _ ) Yes ( _ ) No Is excused from all work: ( X ) Yes ( _ ) No Has work limitations: ( _ ) Yes ( _ ) No As follows: _ Limitations apply until: _ Follow-Up Appointment : ( 04/26/2015 ) Return to Work date: Uncertain Notes: Please excuse from work until next visit. Will re-evaluate at that time. Sincerely, BENJA PERALTA [id number] [place] [address] [place] [address] Electronic Signature Electronically Signed By: BENJA PERALTA MD On: 20 April 2015 This document has images extracted. Source: [facility] POWERCHART Document Id: [id number] Miscellaneous - Benja Bradley M.D. - 04/20/2015 10:07 AM [employer]ING [employer]ER Ambulatory Patient Summary [address] [place] [id number] Visit Information Name: KURTIS COOK [facility] Number: [id number] Current Date: 04/20/2015 10:07:04 Physicians Attending Provider: BENJA PERALTA MD Primary [...] Tablet(s), Oral, two times a day mood/anxiety FLUoxetine (PROzac 20 mg oral capsule) 1 cap, Oral, once a day mood Stop Taking the Following Medications: Medication list as of 04-20-15 10:07 Attention: If you have any medications at [...] Electronically Signed By: BENJA PERALTA MD Signed On:20-APR-2015 10:06:17 Your Allergies & Intolerances Substance Reaction Symptoms Category Comments Ceclor Drug Your Problem List Problem Status Onset Comments Tobacco abuse Active 03/21/2011 Dysthymic Disorder Active 06/27/2011 Depression Anxiety Active 07/29/2012 Your Upcoming Appointments Date Time Location Provider 05/02/2015 15:00 [facility], Lamar L 05/09/2015 15:00 [facility], Lamar L 05/18/2015 15:00 [facility], Lamar L Attention: Contact your local Clinic if further [...] if you dont have one. Go to [email or web address] and click on Create Your Account. Then, follow the directions to complete the online form. Youll be asked for your [facility] number which you can find at the top of this document. Your Goals/Additional instructions: Future Appointment: Obed Foster, 04/26, 30min if possible-15 ok Lab: _ Radiology: _ Need Prior Auth: _ NO Prior Auth: _ Consult: _ Release of MR_ PHI_ Source: [facility] POWERCHART Document Id: [id number] ING WHEEL FILLER Miscellaneous - Benja Bradley M.D. - 04/20/2015 10:07 AM [employer] Ambulatory Discharge Medication List [address] [place], [place] [phone] Visit Information Name: KURTIS COOK [facility] Number: [id number] Visit Date: 04/20/2015 10:07:03 Attending Provider: BENJA PERALTA MD Primary Care [...] Tablet(s), Oral, two times a day mood/anxiety FLUoxetine (PROzac 20 mg oral capsule) 1 cap, Oral, once a day mood Stop Taking the Following Medications: Medication list as of 04-20-15 10:07 Attention: If you have any medications at [...] Electronically Signed By: BENJA PERALTA MD Signed On:20-APR-2015 10:06:17 Additional Information: Source: [facility] POWERCHART Document Id: [id number] IN[employer] WHEEL F[employer]ER Miscellaneous - Alice Wilcox, L.P.N. - 04/20/2015 9:13 AM CST Adult Assurance Manager Intake/History Adult Assurance Manager Intake/History Entered On: 04/20/2015 9:19 [employer] Performed On: 04/20/2015 9:13 [employer]ER by ALICE WILCOX Intake Chief Complaint : Here for medication change update. Acknowledges poor nutrition might be cause of bilateral knee joint aching. Ambulatory Intake Additional Information : Managing with break up off one month. Still living in same dwelling. Poor appetite, poor sleep. Looking for apt. Admits to increased etoh & smoking habits. Temperature Core : 36.7 DegC(Converted to: 98.1 DegF) Peripheral Pulse Rate : 62 /min Respiratory Rate : 16 /min Heart Rhythm : Regular Systolic Blood Pressure : 112 mmHg Diastolic Blood Pressure : 71 mmHg NIBP Mean : 85 mmHg BP Location : Left upper extremity Blood Pressure Cuff Size : Large SpO2 : 98 % Oxygen Therapy : Room air Height : 178 cm(Converted to: 5 ft 10 inch(es), 70 inch(es)) Actual Weight : 93.8 kg(Converted to: 206 lb 13 oz) Weight Source : Standing scale Dosing Weight Clinic : 93.8 kg Clinic BSA : 2.15 Body Mass Index : 29.6 kg/m2 ALICE WILCOX - 04/20/2015 9:13 [employer] General Info Information Given By : Patient Languages : Swazi Is Patient Female and 13-50 no hysterectomy : No ALICE WILCOX 04/20/2015 9:13 [employer]ING WHE[employer] Subjective Pain Symptoms : Yes ALICE WILCOX 04/20/2015 9:13 [employer]ING WHE[employer] F[employer]ER Pain Scale Pain Scale Verbal 0-10 : Open JAJA ALICE Pagan 04/20/2015 9:13 [employer]ER Pain Pain Assessment Grid Pain 1 Location : Knee Laterality : Bilateral Intensity : 2 ALICE WILCOX 04/20/2015 9:13 [employer]ER Dependent Habits Exposure to Tobacco Smoke : Patient smokes Smoking Status : Current every day smoker Tobacco 2A : Yes Tobacco Use/Currently Using : Yes Tobacco Use/Last 30 Days : Yes Tobacco Use/Last 12 months : Yes Type : Cigarettes: More than 40 per day Tobacco Use/Advised to Quit : Yes Alcohol Use : Yes ALICE WILCOX 04/20/2015 9:13 [employer]ER Caffeine Use Grid Caffeine Use : Current Type : Soft drinks Frequency : Daily ALICE WILCOX 04/20/2015 9:13 [employer]ING WHE[employer]ER Recreational Drug Use Grid Drug Use : None ALICE WILCOX 04/20/2015 9:13 [employer]ANNING WHEEL F[employer]ER Source: [facility] POWERCHART Document Id: [id number] TANNING WHEEL FILLER!53 ING WHEEL F[employer]ER Miscellaneous - Tangela Rivers, L.P.N. - 04/20/2015 8:47 AM CST PHQ-9 PHQ-9 Entered On: 04/27/2015 8:47 [employer]ING WHE[employer]ER Performed On: 04/20/2015 8:47 [employer] by TANGELA RIVERS LPN PHQ-9 Little interest or pleasure in doing things : More than half the days Feeling down, depressed, or hopeless : More than half the days Trouble falling or staying asleep, or sleeping too much : More than half the days Feeling tired or having little energy : More than half the days Poor appetite or overeating : More than half the days Feeling bad about yourself or that you are a failure : More than half the days Trouble concentrating on things : More than half the days Moving or speaking slowly; restless or fidgety : More than half the days Thoughts that you would be better off /hurting self : Not at all PHQ-9 Calculated Score : 16 Problems make work, home, or dealing with others : Very difficult TANGELA RIVERS LPN - 04/27/2015 8:47 [employer]ING [employer]ER Source: [facility] Document Id: [id number] TANNING WHEEL FILLER!13 ING WHEEL FILLER documented in this encounter Plan of Treatment Upcoming Encounters Date Type Specialty Care Team Description 01/12/2022 Office Visit Family Medicine Mary Ann Jerez M.D. [address] [place] [phone] (Wo rk) documented as of this encounter Visit Diagnoses Not on filedocumented in this encounter Additional Health Concerns Assessment Noted Time PHQ-9 Depression Total Score: 16 04/20/2015 8:47 AM CS T documented as of this encounter
--- OUTSIDE RECORDS SUMMARY | 2022-01-06 00:05 | XMS_ITS | Encounter Summary ---
:1990 Author Organization [facility] Address [address] [place] [address] Care Team Providers Name Role Phone Unavailable Primary Care Provider Unavailable Encounter Details Date Type Department Care Team Description 04/26/2015 Hospital Encounter HX [facility] Benja Sparks M.D. [address] [phone] (Wo rk) Social History Tobacco Use Types Packs/Day Years Used Date Smoking Tobacco: Never Assessed Sex Assigned at Date Recorded Not on file documented as of this encounter Last Filed Vital Signs Vital Sign Reading Time Taken Comments Blood Pressure 130/76 04/26/2015 2:14 PM REMOTE SENSING TECHNICIAN Pulse 82 04/26/2015 2:14 PM REMOTE SENSING TECHNICIAN Temperature - - Respiratory Rate 16 04/26/2015 2:14 PM REMOTE SENSING TECHNICIAN Oxygen Saturation - - Inhaled Oxygen Concentration - - Weight 92.8 kg (204 lb 9.4 oz) 04/26/2015 2:14 PM REMOTE SENSING TECHNICIAN Height 178 cm (5' 10.08) 04/26/2015 2:14 PM REMOTE SENSING TECHNICIAN Body Mass Index 29.29 04/26/2015 2:14 PM REMOTE SENSING TECHNICIAN documented in this encounter Progress Notes Benja Bradley M.D. - 04/26/2015 5:20 PM CST Clinic Full Note CHIEF COMPLAINT/REASON FOR VISIT Medication follow up. HISTORY OF PRESENT ILLNESS Kurtis presents today for follow up of his mood. He has been taking the Prozac consistently and isoverall feeling better however today he did not take the clonazepam and he feels much more anxious. He thinks his sadness level has subsided and he has a more positive outlook. No drinking and he spokewith the dietitian and he has a good plan for his nutrition. His ex has moved out and he plans to move into a new apartment at the beginning of May. He has been going to work for 4-5 hours per day and is trying to build a routine. He does note bad dreams for the past 3-4 nights, but he is actually sleeping now. He does note an increase in energy which he thinks is weird. He cleaned his whole apartment yesterday. He also bought a new pickup. He has been wanting one but his ex wouldn't let him buy one. MEDICATIONS clonazePAM 0.5 mg oral tablet, 0.5 [...] HISTORY Teeth (2006). SOCIAL HISTORY Date Time: 04/26/2015 14:14 Tobacco: Smoking Status: Current every day smoker Exposure: Patient smokes Alcohol: Use: Yes Recreational Drugs: Use: None Type: No Results Found FAMILY HISTORY Mother (Ankit):Positive: Chronic pain syndrome; Degenerative joint disease; Depression; Generalized anxiety disorder; Hypercholesterolemia; Hypertension; Obesity; Seizure disorder Father: Negative: Brother: Negative: Brother: Negative: Brother: Negative: SYSTEMS REVIEW As per HPI. No suicidal ideation. VITAL SIGNS T: 36.6 ??C (Core) HR: 82 RR: 16 BP: 130 / 76 SpO2: 99% HT: 178 cm WT: 92.8 kg BMI: 29.29 PHYSICAL EXAMINATION General: Patient is alert and oriented in no acute distress. Psychiatric: Mood is described as overall better, but anxious today. Affect appears fidgety and anxious. Thought process is fairly linear. Insight and judgment are likely adequate. Speech is a little fast at times. IMPRESSION/REPORT/PLAN 1. Disorder Adjustment With Anxious Mood Mood/anxiety are generally improving. We are going to increase his Prozac to 40mg daily. We refilled his clonazepam for a 1/2 pill up to 3 times a day. Ultimately, we hope to not continue this superintendent terminal, but patient is currently benefitting from it. Patient also notes increased energy and buying a new truck. He is sleeping however. We need to closely monitor these behaviors but at this point, I do not think they are an indication of tiffany or hypomania. Ordered: OV Est Pt Level 4 - 73673 - 25 min 2. Disorder Depressive Persistent (Formerly Dysthymia) NOS As above. Patient is following up with the therapist next week and will return in 2 weeks. Ordered: OV Est Pt Level 4 - 98065 - 25 min 30 minutes was spent with the patient today with over half of it counseling regarding his current health problems. Electronically Signed By: BENJA PERALTA MD On: 04/28/2015 05:23 PM Source: [employer] Document Id: [id number] TE SENSING TECHNICIAN documented in this encounter Miscellaneous Notes Miscellaneous - Ursula Jorge L.P.N. - 04/26/2015 6:34 PM CST KHALIDA-7 KHALIDA-7 Entered On: 05/05/2015 18:34 REMOTE SENSING TECHNICIAN Performed On: 04/26/2015 18:34 REMOTE SENSING TECHNICIAN by URSULA JORGE LPN GAD7 GAD7 Feeling nervous : Several days GAD7 Not able to control worry : Several days GAD7 Worrying too much : Several days GAD7 Trouble relaxing : Several days GAD7 Being so restless : Several days GAD7 Becoming easily annoyed : Several days GAD7 Feeling afraid : Several days GAD7 Total Score : 7 URSULA JORGE LPN - 05/05/2015 18:34 REMOTE SENSING TECHNICIAN Source: [employer] Document Id: [id number] REMOTE SENSING TECHNICIAN!10 TE SENSING TECHNICIAN Miscellaneous - Ursula Jorge L.P.N. - 04/26/2015 6:33 PM CST PHQ-9 PHQ-9 Entered On: 05/05/2015 18:34 REMOTE SENSING TECHNICIAN Performed On: 04/26/2015 18:33 REMOTE SENSING TECHNICIAN by URSULA JORGE LPN PHQ-9 Little interest or pleasure in doing things : Several days Feeling down, depressed, or hopeless : Several days Trouble falling or staying asleep, or sleeping too much : Several days Feeling tired or having little energy : Several days Poor appetite or overeating : Several days Feeling bad about yourself or that you are a failure : Several days Trouble concentrating on things : Several days Moving or speaking slowly; restless or fidgety : Several days Thoughts that you would be better off /hurting self : Not at all PHQ-9 Calculated Score : 8 URSULA JORGE LPN - 05/05/2015 18:33 REMOTE SENSING TECHNICIAN Source: [facility] Document Id: [id number] REMOTE SENSING TECHNICIAN!12 TE SENSING TECHNICIAN Miscellaneous - Benja Bradley M.D. - 04/26/2015 2:53 PM REMOTE SENSING TECHNICIAN Work Excuse 26 April 2015 KURTIS JOYCE [address] [facility] [id number] Dear KURTIS COOK, You were examined in my office on: 04/26/2015 Reason for work excuse: Medical Illness ( [...] based on his symptoms. Limitations apply until: _ Follow-Up Appointment : ( 2 weeks ) Return to Work date: 04/27/2015 Notes: _ Sincerely, BENJA PERALTA [id number] [place] [address] Electronic Signature Electronically Signed By: BENJA PERALTA MD On: 26 April 2015 This document has images extracted. Source: [facility] Document Id: [id number] Miscellaneous - Benja Bradley M.D. - 04/26/2015 2:49 PM REMOTE SENSING TECHNICIAN Ambulatory Patient Summary [address] [place] [id number] Visit Information Name: JOYCEKURTIS GEN [facility] Number: [id number] Current Date: 04/26/2015 14:49:51 Physicians Attending Provider: BENJA PERALTA MD Primary Care Provider: BENJA PERALTA MD JOYCELEESAShadia BLEVINS has been given the following list of [...] Changes/Routing clonazePAM (clonazePAM 0.5 mg oral tablet) 0.5 Tablet(s), Oral, two times a day mood/anxiety with upto 1 prn dose daily This is a CHANGE Routed to Printer FLUoxetine (FLUoxetine 40 mg oral capsule) 1 cap, Oral, once a day mood This is a CHANGE [facility] [address] [address] Stop Taking the Following Medications: Medication list as of 04-26-15 14:49 Attention: If you have any medications at [...] Electronically Signed By: BENJA PERALTA MD Signed On:26-APR-2015 14:47:55 Your Allergies & Intolerances Substance Reaction Symptoms Category Comments Ceclor Drug Your Problem List Problem Status Onset Comments Tobacco abuse Active 03/21/2011 Dysthymic Disorder Active 06/27/2011 Depression Anxiety Active 07/29/2012 Disorder 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 GAS WELDING EQUIPMENT MECHANIC, Lamar L 05/04/2015 13:45 [facility] SurgMatthew Real MD, Beto Ortega 05/09/2015 15:00 [facility] GAS WELDING EQUIPMENT MECHANIC, Lamar L 05/17/2015 08:45 [facility] Lead Database Administrator Maria Fernanda Loera RD 05/18/2015 15:00 [facility]hav [facility] GAS WELDING EQUIPMENT MECHANIC, Lamar L Attention: Contact your local Clinic [...] if you dont have one. Go to [email or web address] and click on Create Your Account. Then, follow the directions to complete the online form. Youll be asked for your [facility] number which you can find at the top of this document. Your Goals/Additional instructions: Future Appointment: Obed Foster, 2 weeks, 15 min Lab: _ Radiology: _ Need Prior Auth: _ NO Prior Auth: _ Consult: _ Release of MR_ PHI_ Source: [facility] POWER[facility]ART Document Id: [id number] TE SENSING TECHNICIAN Miscellaneous - Benja Bradley M.D. - 04/26/2015 2:49 PM REMOTE SENSING TECHNICIAN Ambulatory Discharge Medication List [address] [id number] Visit Information Name: KURTIS COOK [facility] Number: [id number] Visit Date: 04/26/2015 14:49:50 Attending Provider: BENJA PERALTA MD Primary Care Provider: BENJA PERALTA MD JOYCEKURTIS GEN has been given the following list [...] Changes/Routing clonazePAM (clonazePAM 0.5 mg oral tablet) 0.5 Tablet(s), Oral, two times a day mood/anxiety with upto 1 prn dose daily This is a CHANGE Routed to [employer] FLUoxetine (FLUoxetine 40 mg oral capsule) 1 cap, Oral, once a day mood This is a CHANGE Routed to [address] [address] Stop Taking the Following Medications: Medication list as of 04-26-15 14:49 Attention: If you have any medications at [...] Electronically Signed By: BENJA PERALTA MD Signed On:26-APR-2015 14:47:55 Additional Information: Source: [facility] POWERCHART Document Id: [id number] TE SENSING TECHNICIAN Miscellaneous - Tangela Rivers, L.P.N. - 04/26/2015 2:14 PM CST Adult Sas Developer Analyst Intake/History Adult Sas Developer Analyst Intake/History Entered On: 04/26/2015 14:17 REMOTE SENSING TECHNICIAN Performed On: 04/26/2015 14:14 REMOTE SENSING TECHNICIAN by [employer] BUSINESS ADMINISTRATOR Intake Chief Complaint : Medication follow up. Ambulatory Intake Additional Information : Patient experiencing nightmares on new medications. Temperature Core : 36.6 DegC(Converted to: 97.9 DegF) Peripheral Pulse Rate : 82 /min Respiratory Rate : 16 /min Systolic Blood Pressure : 130 mmHg Diastolic Blood Pressure : 76 mmHg NIBP Mean : 94 mmHg BP Location : Left upper extremity Blood Pressure Cuff Size : Regular SpO2 : 99 % Oxygen Therapy : Room air Height : 178 cm(Converted to: 5 ft 10 inch(es), 70 inch(es)) Actual Weight : 92.8 kg(Converted to: 204 lb 9 oz) Weight Source : Standing scale Dosing Weight Clinic : 92.8 kg Clinic BSA : 2.14 Body Mass Index : 29.29 kg/m2 TANGELA RIVERS [facility] - 04/26/2015 14:14 REMOTE SENSING TECHNICIAN General Info Information Given By : Patient Preferred Communication Mode : Verbal Languages : Czech Is Patient Female and 13-50 no hysterectomy : No [employer] BUSINESS ADMINISTRATOR - 04/26/2015 14:14 REMOTE SENSING TECHNICIAN Subjective Pain Symptoms : No [employer] [employer] [facility] - 04/26/2015 14:14 REMOTE SENSING TECHNICIAN Dependent Habits Exposure to Tobacco Smoke : Patient smokes Smoking Status : Current every day smoker Tobacco 2A : Yes Tobacco Use/Currently Using : Yes Tobacco Use/Last 30 Days : Yes Tobacco Use/Last 12 months : Yes Type : Cigarettes: Less than 20 per day Tobacco Use/Advised to Quit : Yes Alcohol Use : Yes [facility] [employer] [facility] - 04/26/2015 14:14 REMOTE SENSING TECHNICIAN Caffeine Use Grid Caffeine Use : Current Type : Soft drinks Frequency : Daily TANGELA RIVERS LPN - 04/26/2015 14:14 REMOTE SENSING TECHNICIAN Recreational Drug Use Grid Drug Use : None [employer] [employer]ERS [facility] - 04/26/2015 14:14 REMOTE SENSING TECHNICIAN Source: [facility] POWERCHART Document Id: [id number] REMOTE SENSING TECHNICIAN!45 TE SENSING TECHNICIAN documented in this encounter Plan of Treatment Upcoming Encounters Date Type Specialty Care Team Description 01/12/2022 Office Visit Family Medicine Mary Ann Jerez M.D. [address] [phone] (Wo rk) documented as of this encounter Visit Diagnoses Not on filedocumented in this encounter Additional Health Concerns Assessment Noted Time PHQ-9 Depression Total Score: 8 04/26/2015 6:33 PM REMOTE SENSING TECHNICIAN documented as of this encounter
--- OUTSIDE RECORDS SUMMARY | 2022-01-06 00:06 | XMS_ITS | Continuity of Care Document ---
:1990 Author Organization [facility] Address [address] [place] [address] Encounter 03/29/21 - 03/29/21 [facility] [address] [place] [phone] Encounter Diagnosis Nausea (Discharge Diagnosis) - 03/29/21 Constipation (Discharge Diagnosis) - 03/29/21 Discharge Disposition: Home Attending Physician: Cecilia Cantu Admitting Physician: Cecilia Cantu Referring Physician: Cecilia Cantu Allergies, Adverse Reactions, Alerts Substance Reaction Severity Status Ceclor anaphlxis Active Assessment and Plan Extracted from: Title: Urgent Care Note Author: Cecilia Cantu Date: 03/29 1.??Nausea 2.??Constipation 30 year old male with intermittent nause a, heartburn and constipation for the last few weeks. Patient does not feel he has had good bowel movement the last 2 weeks. He is passing gas. Denies significant abdominal pain. Denies vomiting. Denies fevers. Abdominal exam is benign today. Given history we discussed that symptoms are likely elated to the constipation. He has also unfortunately struggled with reflux symptoms for several years. We di scussed lifestyle modifications that can help with this. Advised Miralax for constipation symptoms. Encouraged fluids. We did discussed further workup including l abs today and patient would like to proc eed with conservative measures and watchful waiting. He will return for evaluation if he experiences worsening pain, vomiting, fevers or if symptoms do not improv e as expected. Patient did request presc ription for antiemetic. Did send zofran PRN. Advised he will likely not have improvement??nausea until he has??successful bowel movement.??Patient demonstrates un derstanding. Has no further questions at this time. Functional Status 03/29/21 ADLs (func) Independent Disabilities (func) None Medications Zofran ODT 8 mg oral tablet, disintegrating 8 MG = 1 tab, orally, 3 times a day, X 4 Days, # 12 tab, Refill(s) 0, Pharmacy: [id number] Start Date: 03/29/21 Stop Date: 04/02/21 Status: Ordered Mental Status 03/29/21 Able to Report correct day of the week Correct Able to Report correct month Accurate within 5 days Able to Report correct year Correct Problem List Diagnosis Diagnosis Type Effective Dates Health Status Clinical In formant Service Nausea Discharge 03/29/21 Diagnosis Constipation Discharge 03/29/21 Diagnosis Vital Signs Most recent to oldest [Reference Range]: 1 Blood Pressure [100-150/50-95 mmHg] 125/85 mmHg (03/29/21 4:30 PM) Respiratory Rate [12-20 br/min] 16 br/min (03/29/21 4:30 PM) Temperature Oral [96-100 DegF] 97.4 DegF (03/29/21 4:30 PM) Pulse Rate [55-100 bpm] 106 bpm *HI* (03/29/21 4:30 PM) Oxygen Saturation [94-100 %] 98 % (03/29/21 4:30 PM) Do you have these Coronavirus symptoms? None (03/29/21 4:30 PM) Close contact w lab confirm Coronavirus No (03/29/21 4:30 PM) Have you traveled to Coronavirus area No (03/29/21 4:30 PM) Where have you traveled? No (03/29/21 4:30 PM) Social History Social History Type Response Smoking Status Former smoker, quit more salbador n 30 days ago; Never; Tobacco Screening/Education Patient was screened for tobacco use and is a nonuser.; Smoking in Household No entered on: 03/29/21 Sex Male Hospital Discharge Instructions Patient Ucncrohhu75/26/2022 16:55:18Constipation (Adult)Constipation (Adult) Constipation means that you have bowel movements that are less frequent than usual. Stools often become very hard and difficult to pass. Constipation is very common. At some point in life, it affects almost everyone. Since everyone's bowel habits are different, what is constipation to one person may not be to another. Your healthcare provider may do tests to diagnose constipation. It depends on what??he or she??finds when evaluating you. Symptoms of constipation include: ???Abdominal pain ???Bloating ???Vomiting ???Painful bowel movements ???Itching, swelling, bleeding, or pain around the anus Causes Constipation can have many causes. These include: ???Diet low in fiber ???Too much dairy ???Not drinking enough liquids ???Lack of exercise or physical activity (especially true for older adults) ???Changes in lifestyle or daily routine, including , aging, work, and travel ???Frequent use or misuse of laxatives ???Ignoring the urge to have a bowel movement or delaying it until later ???Medicines, such as certain prescription pain medicines, iron supplements, antacids, certain antidepressants, and calcium supplements ???Diseases like irritable bowel syndrome, bowel obstructions, stroke, diabetes, thyroid disease, Parkinson disease, hemorrhoids, and colon cancer Complications Potential complications of constipation can include: ???Hemorrhoids ???Rectal bleeding from hemorrhoids or anal fissures??(skin tears) ???Hernias ???Dependency on laxatives ???Chronic constipation ???Fecal impaction, a severe form of constipation in which a large amount of hard stool is in your rectum that you can't pass ???Bowel obstruction or perforation Home care All treatment should be done after talking with your healthcare provider. This is especially true ifyou have another medical problems, are taking prescription medicines, or are an older adult. Treatment most often involves lifestyle changes. You may also need medicines. Your healthcare provider will tell you which will work best for you. Follow the advice below to help avoid this problem in the future. Lifestyle changes These lifestyle changes can help prevent constipation: ???Diet. Eat a high-fiber diet, with fresh fruit and vegetables, and reduce dairy intake, meats, andprocessed foods ???Fluids. It's important to get enough fluids each day. Drink plenty of water when you eat more fiber. If you are on diet that limits the amount of fluid you can have, talk about this with your healthcare provider. ???Regular exercise. Check with your healthcare provider first. Medicines Take any medicines as directed. Some laxatives are safe to use only every now and then. Others can be taken on a regular basis. While laxatives don't cause bowel dependence, they are treating the symptoms. So your constipation may return if you don't make other changes. Talk with your healthcare provider or pharmacist if you have questions. Prescription pain medicines can cause constipation. If you are taking this kind of medicine, ask your healthcare provider if you should also take a stool softener. Medicines you may take to treat constipation include: ???Fiber supplements ???Stool softeners ???Laxatives ???Enemas ???Rectal suppositories Follow-up care Follow up with your healthcare provider if symptoms don't get better in the next few days. You may need to have more tests or see a specialist. Call 911 Call 911 if any of these occur: ???Trouble breathing ???Stiff, rigid abdomen that is severely painful to touch ???Confusion ???Fainting or loss of consciousness ???Rapid heart rate ???Chest pain When to seek medical advice Call your healthcare provider right away if any of these occur: ???Fever of 100.4??F (38??C) or higher, or as directed by your healthcare provider ???Failure to resume normal bowel movements ???Pain in your abdomen or back gets worse ???Nausea or vomiting ???Swelling in your abdomen ???Blood in the stool ???Black, tarry stool ???Involuntary weight loss ???Weakness ?? 9975-[address] [employer]. [address] [place] [address]. All rights reserved. This information is not intended as a substitute for professional medical care. Always follow your healthcare professional's instructions. 03/29/2021 16:55:12Polyethylene Glycol powderPolyethylene Glycol powder What is this medicine? POLYETHYLENE GLYCOL 3350 (christina ee ETH i zhen; GLYE col) powder is a laxative used to treat constipation. It increases the amount of water in the stool. Bowel movements become easier and more frequent. How should I use this medicine? Take this medicine by mouth. The bottle has a measuring cap that is marked with a line. Pour the powder into the cap up to the marked line (the dose is about 1 heaping tablespoon). Add the powder in the cap to a full glass (4 to 8 ounces or 120 to 240 mL) of water, juice, soda, coffee or tea. Mix the powder well. Ensure that the powder is fully dissolved. Do not drink if there are any clumps. Drink the solution. Take exactly as directed. Do not take your medicine more often than directed. Talk to your grain scooper regarding the use of this medicine in children. Special care may be needed. What side effects may I notice from receiving this medicine? Side effects that you should report to your doctor or health career development coordinator as soon as possible: ???diarrhea ???difficulty breathing ???itching of the skin, hives, or skin rash ???severe bloating, pain, or distension of the stomach ???vomiting Side effects that usually do not require medical attention (report to your doctor or health career development coordinator if they continue or are bothersome): ???bloating or gas ???lower abdominal discomfort or cramps ???nausea What may interact with this medicine? Interactions are not expected. What if I miss a dose? If you miss a dose, take it as soon as you can. If it is almost time for your next dose, take only that dose. Do not take double or extra doses. Where should I keep my medicine? Keep out of the reach of children. Store between 15 and 30 degrees C (59 and 86 degrees F). Throw away any unused medicine after the expiration date. What should I tell my health care provider before I take this medicine? They need to know if you have any of these conditions: ???a history of blockage of the stomach or intestine ???current abdomen distension or pain ???difficulty swallowing ???diverticulitis, ulcerative colitis, or other chronic bowel disease ???phenylketonuria ???an unusual or allergic reaction to polyethylene glycol, other medicines, dyes, or preservatives ??? or trying to get ???breast-feeding What should I watch for while using this medicine? Do not use for more than 2 weeks without advice from your doctor or health career development coordinator. It cantake 2 to 4 days to have a bowel movement and to experience improvement in constipation. See your health career development coordinator for any changes in bowel habits, including constipation, that are severe or last longer than three weeks. Always take this medicine with plenty of water. NOTE:This sheet is a summary. It may not cover all possible information. If you have questions aboutthis medicine, talk to your doctor, pharmacist, or health care provider. Copyright?? 2019 [employer] 03/29/2021 16:55:05Medicines for Acid RefluxMedicines for Acid Reflux Your healthcare provider has told you that you have acid reflux. This condition causes stomach acid to wash up into your throat. For most people, acid reflux is troubling but not dangerous. But left untreated, it can sometimes damages the esophagus. Medicines can help control acid reflux and limit your risk of future problems. Medicines for acid reflux Your healthcare provider may prescribe medicine to help treat your acid reflux. Medicine will be based on your symptoms and any test results. Your provider will explain how to take your medicine. You will also be told about possible side effects. Reducing stomach acid Your provider may suggest antacids that you can buy over the counter. Antacids can give fast relief.??Or you may be told to take a type of medicine called H2 blockers. These are available [id number]-[id number] and by prescription (for higher doses). Blocking stomach acid In more severe cases, your healthcare provider may suggest stronger medicines such as proton??pump inhibitors (PPIs). These keep the stomach from making acid.??They are often??prescribed for long-term use. Other medicines In some cases, medicines to reduce or block stomach acid may not work. Then you may be switched to another type of medicine that helps your stomach empty better. ?? 1020-2022 [employer]. [address] [place] [address]. All rights reserved. This information is not intended as a substitute for professional medical care. Always follow your healthcare professional's instructions. 03/29/2021 16:55:02Lifestyle Changes for Controlling GERDLifestyle Changes for Controlling??GERD When you have GERD, stomach acid feels as if it???s backing up toward your mouth. Making lifestyle changes can often improve your symptoms. This is true if you take medicine to control your GERD or not. Talk with your healthcare provider about the following suggestions. They may help you get relief from your symptoms. ? Raise your head Reflux is more likely to happen when you???re lying down flat. That's because stomach fluid can flowbackward more easily. Raising the head of your bed??4 to 6 inches can help. To do this: ???Slide blocks or books under the legs at the head of your bed. Or put a wedge under the mattress. Many foam stores can make a wedge for you. The wedge should go from your waist to the top of your head. ???Don???t just prop your head up on a few pillows. This increases pressure on your stomach. It can make GERD worse. Watch your eating habits Certain foods may increase the acid in your stomach. Or they may relax the lower esophageal sphincter. This makes GERD more likely. It???s best to avoid the following if they cause you symptoms: ???Coffee, tea, and carbonated drinks (with and without caffeine) ???Fatty, fried, or spicy food ???Mint, chocolate, onions, tomatoes, and citrus ???Peppermint ???Any other foods that seem to irritate your stomach or cause you pain Relieve the pressure Tips include the following: ???Eat smaller meals, even if you have to eat more often. ???Don???t lie down right after you eat. Wait a few hours for your stomach to empty. ???Don't wear tight belts or tight-fitting clothes. ???Lose any extra weight. Tobacco and alcohol Don't smoke tobacco or drink alcohol. They can make GERD symptoms worse. ?? 8580-[address] [employer]. [address] [place] [address]. All rights reserved. This information is not intended as a substitute for professional medical care. Always follow your healthcare professional's instructions. 03/29/2021 16:55:00GERD (Adult)GERD (Adult) The esophagus is a tube that carries food from the mouth to the stomach. A valve (the LES, lower esophageal sphincter) at the lower end of the esophagus prevents stomach acid from flowing upward. When this valve doesn't work properly, stomach contents may repeatedly flow back up (reflux) into the esophagus. This is called??gastroesophageal reflux disease (GERD).??GERD can irritate the esophagus. It can cause problems with pain, swallowing or breathing. In severe cases, GERD can cause recurrent pneumonia (from aspiration or breathing in particles) or other serious problems. Symptoms of reflux include burning, pressure or sharp pain in the upper abdomen or mid to lower chest. The pain can spread to the neck, back, or shoulder. There may be belching, an acid taste in the back of the throat, chronic cough, or sore throat, or hoarseness. GERD symptoms often occur during the day after a big meal. They can also occur at night when lying down.?? Home care Lifestyle changes can help reduce symptoms. If needed, your healthcare provider may prescribe medicines.??Symptoms often improve with treatment, but if treatment is stopped, the symptoms often return after a few months. So most persons with GERD will need to continue treatment or get treatment on and off. Lifestyle changes ???Limit or avoid fatty, fried, and spicy foods, as well as coffee, chocolate, mint, and foods with high acid content such as tomatoes and citrus fruit and juices (orange, grapefruit, lemon). ???Don???t eat large meals, especially at night. Frequent, smaller meals are best. Don't lie down right after eating. And don???t eat anything 3 hours before going to bed. ???Don't drink alcohol or smoke. As much as possible, stay away from second hand smoke. ???If you are overweight, losing weight will reduce symptoms.?Don't wear tight clothing around your stomach area. ???If your symptoms occur during sleep, use a foam wedge to elevate your upper body (not just your head.) Or, place 4 blocks under the head of your bed. Or use 2 bed risers under your bedframe. Medicines If needed, medicines can help relieve the symptoms of GERD and prevent damage to the esophagus. Discuss a medicine plan with your healthcare provider. This may include one or more of the following medicines: ???Antacids to help neutralize the normal acids in your stomach. ???Acid blockers (Histamine or H2 blockers) to decrease acid production. ???Acid inhibitors (proton pump inhibitors PPIs) to decrease acid production in a different way thanthe blockers. They may work better, but can take a little longer to take effect. Take an antacid 30 to 60 minutes after eating and at bedtime, but not at the same time as an acid jihan. Try not to take medicines such as ibuprofen and aspirin. If you are taking aspirin for your heart orother medical reasons, talk to your healthcare provider about stopping it. Follow-up care Follow up with your healthcare provider or as advised by our staff. When to seek medical advice Call your healthcare provider if any of the following occur: ???Stomach pain gets worse or moves to the lower right abdomen (appendix area) ???Chest pain appears or gets worse, or spreads to the back, neck, shoulder, or arm ???An jwvb-cob-ygqinly trial of medicine doesn't relieve your symptoms ???Weight loss that can't be explained ???Trouble or pain swallowing ???Frequent vomiting (can???t keep down liquids) ???Blood in the stool or vomit (red or black in color) ???Feeling weak or dizzy ???Fever of 100.4??F (38??C) or higher, or as directed by your healthcare provider ?? 8314-[address] [employer]. [address] [place] [address], [place] [address]. All rights reserved. This information is not intended as a substitute for professional medical care. Always follow your healthcare professional's instructions.
--- OUTSIDE RECORDS SUMMARY | 2022-01-06 00:06 | XMS_ITS | Encounter Summary ---
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 Appointments that arenot kept need to be cancelled 24 hours prior to the appointment to avoid being billed a $50.00 charge. This charge is not covered by your insurance carrier. Your next scheduled appointment is: Monday, May 18, 2015 at 3:00 p.m. in [place] Please contact us as soon as soon as possible at [phone] or if you do not intend to keep this appointment. Thank you, [facility] [place] [facility] Sincerely, ALEC DICKENS -- Electronic Signature Electronically Signed By: MANINDER --ALEC On: May 10, 2015 This document has images extracted. Source: [facility] POWERCHART Document Id: [id number] documented in this encounter Plan of Treatment Upcoming Encounters Date Type Specialty Care Team Description 01/12/2022 Office Visit Family Medicine Mary Ann Jerez M.D. [address] [place] [phone] (Wo rk) documented as of this encounter Visit Diagnoses Not on filedocumented in this encounter
--- OUTSIDE RECORDS SUMMARY | 2022-01-06 00:06 | XMS_ITS | Encounter Summary ---
:1990 Author Organization [facility] Address [address] [place] [address] Care Team Providers Name Role Phone Unavailable Primary Care Provider Unavailable Encounter Details Date Type Department Care Team Description 03/25/2009 Hospital Encounter HX [facility] INPT/OBSRV Farhana Mao, RAJAT, C.N.P., D.N.P. [address] [place] [id number] (Beulah lisa) Social History Tobacco Use Types Packs/Day Years Used Date Smoking Tobacco: Never Assessed Sex Assigned at Date Recorded Not on file documented as of this encounter Plan of Treatment Upcoming Encounters Date Type Specialty Care Team Description 01/12/2022 Office Visit Family Medicine Mary Ann Jerez M.D. [id number] [phone] (Wo rk) documented as of this encounter Visit Diagnoses Not on filedocumented in this encounter
== END 2022-01-06 00:09 | disposition home or self-care (01) ==
LOC: ED 01-06 00:02
PROVIDERS: Emergency Provider Internal Medicine
DX: R11.2 Nausea with vomiting, unspecified (principal)
CPT/HCPCS: 99282; 99283